=== PATIENT | female | born 1935 | race Caucasian/White ===

== ENCOUNTER 2017-12-28 05:43 | Inpatient (IN) | payer MEDICARE, OTHER ==
[~2017-12-28] VITALS: Ht 149.9 cm; Wt 87.7 kg
[~2017-12-28 05:43] MED LIST: ALEN70TA48 PO; ASPI-1144 PO; BISA-155 PO; CALC-1051 PO; CHOL10002 PO; CLOT12CR TOP; DOCU-28 PO; FERR325T39 PO; HYDR-4383 PO; LEVO137T20 PO; MELO15TA13 PO; METF-436 PO; METO25TA6 PO; MULT-1141 PO; NIFE90TA2 PO; OMEG1CAP54 PO; OMEP20CA10 PO; SIMV40TA4 PO; VIT1CAPS27 PO
[2017-12-28 06:11] LABS: BASOPHILS % (AUTO) 0.4 % (0-1); EOSINOPHILS # (AUTO) 0.2 X10'3 (0-0.9); EOSINOPHILS % (AUTO) 2.6 % (0-6); HEMATOCRIT 38.5 % (35.0-45.0); LYMPHOCYTES # (AUTO) 2.2 X10'3 (1.1-4.8); MEAN CORPUSCULAR HGB CONC 33.8 % (33.0-36.5); MEAN CORPUSCULAR VOLUME 91.8 FL (78-98); MONOCYTES # (AUTO) 1.1 X10'3 (0-0.9); MONOCYTES % (AUTO) 12.1 % (2-12); NEUTROPHILS # (AUTO) 5.7 X10'3 (1.8-7.7); NEUTROPHILS % (AUTO) 60.9 % (42-75); PLATELET COUNT 209 X10'3 (140-440); RED BLOOD COUNT 4.19 X10'6 (4.20-5.60); RED CELL DISTRIBUTION WIDTH 13.1 % (11.5-14.5); WHITE BLOOD COUNT 9.3 X10'3 (4.5-11.0)
[2017-12-28 06:17] LABS: PARTIAL THROMBOPLASTIN TIME 29 SECONDS (22-32); PROTHROMBIN TIME 10.8 SECONDS (9.0-12.0)
[2017-12-28 06:24] LABS: ALANINE AMINOTRANSFERASE 17 U/L (12-78); ALBUMIN 3.6 G/DL (3.4-5.0); ALBUMIN/GLOBULIN RATIO 0.9 (1.1-1.5); ALKALINE PHOSPHATASE 49 IU/L (46-116); ANION GAP 15 (8-16); ASPARTATE AMINO TRANSFERASE 17 U/L (10-37); BILIRUBIN,TOTAL 0.5 MG/DL (0.1-1.0); BLOOD UREA NITROGEN 16 MG/DL (7-18); BUN/CREATININE RATIO 14.2 (6.6-38.0); CALCIUM 9.4 MG/DL (8.5-10.1); CHLORIDE 104 MMOL/L (99-107); CREATININE 1.13 MG/DL (0.40-0.90); GLUCOSE 154 MG/DL (70-104); POTASSIUM 3.9 MMOL/L (3.5-5.1); SODIUM 142 MMOL/L (135-145); TOTAL PROTEIN 7.6 G/DL (6.4-8.2); eGFR 46 ML/MIN
[2017-12-28] MEDS ORDERED: SYN0.088T PO (07:23)
[2017-12-28] MEDS ORDERED: mag hydrox/Alum hydrox/simeth 30ml oral suspension PO PRN (08:00)
[2017-12-28] MEDS ORDERED: potassium Cl 40MEQ/NS 500ml 500 ML IV PRN ×2 (08:00)
[2017-12-28] MEDS ORDERED: magnesium hydroxide 30ml (MOM) UD suspension PO PRN (08:00)
[2017-12-28] MEDS ORDERED: magnesium Cl slow-release 64mg tablet PO PRN (08:00)
[2017-12-28] MEDS ORDERED: levoTHYROXINE 88mcg tablet PO SCH (08:00)
[2017-12-28] MEDS: K and/or MAG REPLACEMENT MC SCH (08:00)
[2017-12-28] MEDS ORDERED: magnesium 4gm in 100ml NS 100 ML IV PRN (08:00)
[2017-12-28] MEDS ORDERED: potassium Cl 20 mEq SR tablet PO PRN ×2 (08:00)
[2017-12-28] MEDS ORDERED: magnesium 1gm/100ml D5W IVPB 100 ML IV PRN (08:00)
[2017-12-28] MEDS ORDERED: ondansetron/PF 4mg/2ml inj IV PRN (08:00)
[2017-12-28] MEDS ORDERED: acetaminophen 325mg tablet PO PRN (08:00)
[2017-12-28] MEDS ORDERED: bisacodyl 10mg suppository rectal RC PRN (08:00)
[2017-12-28] MEDS ORDERED: morphine 2 MG/ML inj. syringe IV PRN ×2 (08:00)
[2017-12-28] MEDS ORDERED: glucagon, human recombinant 1mg kit SUBCUT PRN (08:05)
[2017-12-28] MEDS ORDERED: dextrose 50%-water 50ml dispensing syringe IV PRN ×2 (08:05)
[2017-12-28] MEDS ORDERED: dextrose ORAL solution 15 GM/59 ML bottle PO PRN ×2 (08:05)
[2017-12-28] MEDS ORDERED: MESSAGE TO PHARMACY PO ONE (08:05)
[2017-12-28] MEDS ORDERED: insulin Lispro (HumaLOG) vial - multi-dose SQ SCH (08:05)
[2017-12-28] MEDS ORDERED: nitroGLYCERIN 0.4mg SUBLingual tab SL PRN (08:10)
[2017-12-28 08:41] LABS: HEMOGLOBIN A1C 6.2 % (4.5-6.2)
[2017-12-28 09:00] VITALS: BP 129/68
[2017-12-28 11:00] VITALS: BP 111/64
[2017-12-28] MEDS: docusate sod 100mg capsule PO SCH ×2 (11:04→20:16)
[2017-12-28] MEDS: metoprolol tartrate 25mg tablet PO SCH ×2 (11:04→20:17)
[2017-12-28] MEDS: furosemide 20 MG/2 ML vial IV SCH ×2 (11:05→16:30)
[2017-12-28] MEDS: potassium Cl 20 mEq SR tablet PO SCH ×2 (11:07→17:47)
[2017-12-28] MEDS: enoxaparin 40mg/0.4ml syringe SUBCUT SCH (11:07)
[2017-12-28] MEDS: aspirin 81mg tab.chew PO SCH (11:08)
[2017-12-28 15:56] VITALS: BP 118/69
[2017-12-28 18:00] VITALS: BP 104/68
[2017-12-28] MEDS: atorvastatin 20mg tablet PO SCH (20:16)
[2017-12-28] MEDS: insulin glargine (Lantus) pen - multi-dose SQ SCH (21:00)
[2017-12-28 22:00] VITALS: BP 108/60
[2017-12-29] MEDS: furosemide 20 MG/2 ML vial IV SCH ×3 (00:23→16:00)
[2017-12-29 02:00] VITALS: BP 112/65
[2017-12-29 06:45] LABS: ALANINE AMINOTRANSFERASE 15 U/L (12-78); ALBUMIN 3.2 G/DL (3.4-5.0); ALBUMIN/GLOBULIN RATIO 0.9 (1.1-1.5); ALKALINE PHOSPHATASE 45 IU/L (46-116); ANION GAP 12 (8-16); ASPARTATE AMINO TRANSFERASE 14 U/L (10-37); BILIRUBIN,TOTAL 0.5 MG/DL (0.1-1.0); BLOOD UREA NITROGEN 16 MG/DL (7-18); BUN/CREATININE RATIO 15.7 (6.6-38.0); CALCIUM 8.3 MG/DL (8.5-10.1); CHLORIDE 104 MMOL/L (99-107); CHOL/HDL RATIO 2.9 (0.00-4.99); CHOLESTEROL 122 MG/DL (0-200); CREATININE 1.02 MG/DL (0.40-0.90); GLUCOSE 127 MG/DL (70-104); HDL CHOLESTEROL 42 MG/DL (35-60); LDL CHOLESTEROL 66 MG/DL (50-100); MAGNESIUM 1.6 MG/DL (1.5-2.4); POTASSIUM 3.8 MMOL/L (3.5-5.1); SODIUM 143 MMOL/L (135-145); TOTAL PROTEIN 6.9 G/DL (6.4-8.2); TRIGLYCERIDES 95 MG/DL (20-135); eGFR 52 ML/MIN
[2017-12-29 07:00] VITALS: BP 112/76
[2017-12-29] MEDS: aspirin 81mg tab.chew PO SCH (07:20)
[2017-12-29] MEDS: enoxaparin 40mg/0.4ml syringe SUBCUT SCH (07:20)
[2017-12-29] MEDS: K and/or MAG REPLACEMENT MC SCH (07:22)
[2017-12-29] MEDS ORDERED: metoprolol tartrate 12.5mg (1/2 tablet) PO SCH (07:29)
[2017-12-29] MEDS: docusate sod 100mg capsule PO SCH ×2 (07:33→20:26)
[2017-12-29] MEDS: potassium Cl 20 mEq SR tablet PO SCH ×2 (07:35→17:32)
[2017-12-29] MEDS ORDERED: levoTHYROXINE 75mcg tablet PO SCH (08:00)
[2017-12-29 11:00] VITALS: BP 113/66
[2017-12-29] MEDS: lisinopril 2.5mg tablet PO SCH (13:40)
[2017-12-29 15:00] VITALS: BP 105/65
[2017-12-29 19:00] VITALS: BP 113/62
[2017-12-29] MEDS: metoprolol tartrate 25mg tablet PO SCH (20:26)
[2017-12-29] MEDS: atorvastatin 20mg tablet PO SCH (20:26)
[2017-12-29] MEDS: insulin glargine (Lantus) pen - multi-dose SQ SCH (21:00)
[2017-12-29 23:00] VITALS: BP 126/85
[2017-12-30] MEDS: furosemide 20 MG/2 ML vial IV SCH ×3 (00:40→16:08)
[2017-12-30 03:00] VITALS: BP 104/65
[2017-12-30 05:40] LABS: ALANINE AMINOTRANSFERASE 15 U/L (12-78); ALBUMIN 3.2 G/DL (3.4-5.0); ALBUMIN/GLOBULIN RATIO 0.8 (1.1-1.5); ALKALINE PHOSPHATASE 45 IU/L (46-116); ANION GAP 11 (8-16); ASPARTATE AMINO TRANSFERASE 16 U/L (10-37); BILIRUBIN,TOTAL 0.5 MG/DL (0.1-1.0); BLOOD UREA NITROGEN 15 MG/DL (7-18); BUN/CREATININE RATIO 14.7 (6.6-38.0); CHLORIDE 103 MMOL/L (99-107); CREATININE 1.02 MG/DL (0.40-0.90); GLUCOSE 135 MG/DL (70-104); MAGNESIUM 1.7 MG/DL (1.5-2.4); POTASSIUM 3.8 MMOL/L (3.5-5.1); SODIUM 143 MMOL/L (135-145); eGFR 52 ML/MIN
[2017-12-30 06:00] VITALS: BP 97/57
[2017-12-30] MEDS: K and/or MAG REPLACEMENT MC SCH (08:00)
[2017-12-30] MEDS: levoTHYROXINE 125mcg tablet PO SCH (08:50)
[2017-12-30] MEDS: aspirin 81mg tab.chew PO SCH (08:51)
[2017-12-30] MEDS: potassium Cl 20 mEq SR tablet PO SCH ×2 (08:51→17:51)
[2017-12-30] MEDS: docusate sod 100mg capsule PO SCH ×2 (08:51→20:50)
[2017-12-30] MEDS: enoxaparin 40mg/0.4ml syringe SUBCUT SCH (08:51)
[2017-12-30] MEDS: lisinopril 2.5mg tablet PO SCH ×2 (08:51→16:08)
[2017-12-30] MEDS: metoprolol tartrate 25mg tablet PO SCH ×2 (08:51→20:50)
[2017-12-30 11:00] VITALS: BP 112/64
[2017-12-30 19:00] VITALS: BP 119/59
[2017-12-30] MEDS: atorvastatin 20mg tablet PO SCH (20:50)
[2017-12-30] MEDS: insulin glargine (Lantus) pen - multi-dose SQ SCH (21:00)
[2017-12-30 23:00] VITALS: BP 110/48
[2017-12-31] VITALS (7 sets, daily range): BP systolic 87–121; BP diastolic 45–77
[2017-12-31 06:04] LABS: ALANINE AMINOTRANSFERASE 17 U/L (12-78); ALBUMIN 3.2 G/DL (3.4-5.0); ALBUMIN/GLOBULIN RATIO 0.8 (1.1-1.5); ALKALINE PHOSPHATASE 51 IU/L (46-116); ANION GAP 8 (8-16); ASPARTATE AMINO TRANSFERASE 17 U/L (10-37); BILIRUBIN,TOTAL 0.5 MG/DL (0.1-1.0); BLOOD UREA NITROGEN 20 MG/DL (7-18); BUN/CREATININE RATIO 18.3 (6.6-38.0); CALCIUM 7.9 MG/DL (8.5-10.1); CHLORIDE 101 MMOL/L (99-107); CREATININE 1.09 MG/DL (0.40-0.90); GLUCOSE 127 MG/DL (70-104); MAGNESIUM 1.8 MG/DL (1.5-2.4); POTASSIUM 4.2 MMOL/L (3.5-5.1); SODIUM 139 MMOL/L (135-145); TOTAL CARBON DIOXIDE 29.9 MMOL/L (24-32); TOTAL PROTEIN 7.2 G/DL (6.4-8.2); eGFR 48 ML/MIN
[2017-12-31] MEDS: enoxaparin 40mg/0.4ml syringe SUBCUT SCH (07:21)
[2017-12-31] MEDS: levoTHYROXINE 125mcg tablet PO SCH (07:21)
[2017-12-31] MEDS: aspirin 81mg tab.chew PO SCH (07:21)
[2017-12-31] MEDS: docusate sod 100mg capsule PO SCH ×2 (07:21→20:00)
[2017-12-31] MEDS: furosemide 20 MG/2 ML vial IV SCH ×3 (07:21→15:13)
[2017-12-31] MEDS: metoprolol tartrate 25mg tablet PO SCH ×2 (07:22→20:12)
[2017-12-31] MEDS: K and/or MAG REPLACEMENT MC SCH (07:22)
[2017-12-31] MEDS: potassium Cl 20 mEq SR tablet PO SCH ×2 (07:22→15:13)
[2017-12-31] MEDS: lisinopril 2.5mg tablet PO SCH (07:22)
[2017-12-31] MEDS: atorvastatin 20mg tablet PO SCH (20:12)
[2017-12-31] MEDS: insulin glargine (Lantus) pen - multi-dose SQ SCH (21:00)
[2018-01-01] MEDS: furosemide 20 MG/2 ML vial IV SCH ×2 (00:29→07:20)
[2018-01-01 03:00] VITALS: BP 93/41
[2018-01-01 03:17] VITALS: BP 109/58
[2018-01-01 06:04] LABS: ALANINE AMINOTRANSFERASE 15 U/L (12-78); ALBUMIN 3.2 G/DL (3.4-5.0); ALBUMIN/GLOBULIN RATIO 0.9 (1.1-1.5); ALKALINE PHOSPHATASE 49 IU/L (46-116); ANION GAP 10 (8-16); ASPARTATE AMINO TRANSFERASE 19 U/L (10-37); BILIRUBIN,TOTAL 0.5 MG/DL (0.1-1.0); BLOOD UREA NITROGEN 18 MG/DL (7-18); BUN/CREATININE RATIO 18.2 (6.6-38.0); CALCIUM 8.6 MG/DL (8.5-10.1); CHLORIDE 99 MMOL/L (99-107); CREATININE 0.99 MG/DL (0.40-0.90); GLUCOSE 134 MG/DL (70-104); MAGNESIUM 1.9 MG/DL (1.5-2.4); POTASSIUM 3.7 MMOL/L (3.5-5.1); SODIUM 138 MMOL/L (135-145); TOTAL CARBON DIOXIDE 29.2 MMOL/L (24-32); TOTAL PROTEIN 6.8 G/DL (6.4-8.2); eGFR 53 ML/MIN
[2018-01-01] MEDS: lisinopril 2.5mg tablet PO SCH (07:27)
[2018-01-01] MEDS: metoprolol tartrate 25mg tablet PO SCH (07:27)
[2018-01-01] MEDS: aspirin 81mg tab.chew PO SCH (07:27)
[2018-01-01] MEDS: docusate sod 100mg capsule PO SCH (07:27)
[2018-01-01] MEDS: levoTHYROXINE 125mcg tablet PO SCH (07:27)
[2018-01-01] MEDS: enoxaparin 40mg/0.4ml syringe SUBCUT SCH (07:29)
[2018-01-01] MEDS: K and/or MAG REPLACEMENT MC SCH (07:32)
[2018-01-01 07:39] VITALS: BP 119/59
[2018-01-01 09:00] VITALS: BP 100/50
[2018-01-01] MEDS: potassium Cl 20 mEq SR tablet PO SCH (09:06)
[2018-01-01 11:42] VITALS: BP 104/53
[2018-01-01] MEDS ORDERED: LISI2.5T2 PO (15:12)
[2018-01-01] MEDS ORDERED: NITR0.4T51 SL (15:12)
[2018-01-01] MEDS ORDERED: LEVO125T8 PO (15:12)
== END 2018-01-01 15:43 | disposition home health service (06) | DRG 292 ==
LOC: ER 05:43 → ED HOLD 07:56 → EDBEDREQTM 08:11 → PCU 3S 09:00
PROVIDERS: ADMIT Internal Medicine; ATTEND Family Medicine
DX: I50.23 Acute on chronic systolic (congestive) heart failure (principal); I24.9 Acute ischemic heart disease, unspecified; I47.2 Ventricular tachycardia; R06.03 Acute respiratory distress; Z95.3 Presence of xenogenic heart valve; E03.9 Hypothyroidism, unspecified; E11.9 Type 2 diabetes mellitus without complications; E78.00 Pure hypercholesterolemia, unspecified; I25.10 Atherosclerotic heart disease of native coronary artery without angina pectoris; G89.29 Other chronic pain; I25.2 Old myocardial infarction; Z60.2 Problems related to living alone; L40.52 Psoriatic arthritis mutilans; M06.9 Rheumatoid arthritis, unspecified; Z89.021 Acquired absence of right finger(s); Z95.1 Presence of aortocoronary bypass graft; Z88.5 Allergy status to narcotic agent; Z88.8 Allergy status to other drugs, medicaments and biological substances; Z79.890 Hormone replacement therapy; Z79.899 Other long term (current) drug therapy; Z85.3 Personal history of malignant neoplasm of breast; Z92.3 Personal history of irradiation
CPT/HCPCS: 36415; 71045; 80053; 80061; 82948; 83036; 83735; 83880; 84443; 84484; 85025; 85610; 85730; 87070; 93005; 93306; 97110; 97116; 97162; 97530; 99285; J1650; J1815; J1940

== ENCOUNTER 2018-01-22 08:05 | Day surgery (SDC) | payer MEDICARE, OTHER ==
[2018-01-17 11:20] LABS: BASOPHILS % (AUTO) 0.5 % (0-1); EOSINOPHILS # (AUTO) 0.1 X10'3 (0-0.9); EOSINOPHILS % (AUTO) 1.9 % (0-6); HEMATOCRIT 38.7 % (35.0-45.0); HEMOGLOBIN 12.9 g/dl (12.0-16.0); LYMPHOCYTES # (AUTO) 1.9 X10'3 (1.1-4.8); LYMPHOCYTES % (AUTO) 26.4 % (21-51); MEAN CORPUSCULAR HEMOGLOBIN 30.3 PG (27.0-31.0); MEAN CORPUSCULAR HGB CONC 33.3 % (33.0-36.5); MEAN CORPUSCULAR VOLUME 91.2 FL (78-98); MEAN PLATELET VOLUME 9.4 FL (7.4-10.4); MONOCYTES # (AUTO) 1.1 X10'3 (0-0.9); MONOCYTES % (AUTO) 14.3 % (2-12); NEUTROPHILS # (AUTO) 4.2 X10'3 (1.8-7.7); NEUTROPHILS % (AUTO) 56.9 % (42-75); PLATELET COUNT 229 X10'3 (140-440); RED BLOOD COUNT 4.24 X10'6 (4.20-5.60); RED CELL DISTRIBUTION WIDTH 13.1 % (11.5-14.5); WHITE BLOOD COUNT 7.4 X10'3 (4.5-11.0)
[2018-01-17 11:41] LABS: PARTIAL THROMBOPLASTIN TIME 28 SECONDS (22-32); PROTHROMBIN TIME 10.8 SECONDS (9.0-12.0)
[2018-01-17 11:45] LABS: ALANINE AMINOTRANSFERASE 15 U/L (12-78); ALBUMIN 3.6 G/DL (3.4-5.0); ALBUMIN/GLOBULIN RATIO 0.9 (1.1-1.5); ALKALINE PHOSPHATASE 55 IU/L (46-116); ANION GAP 12 (8-16); ASPARTATE AMINO TRANSFERASE 14 U/L (10-37); BILIRUBIN,TOTAL 0.5 MG/DL (0.1-1.0); BLOOD UREA NITROGEN 15 MG/DL (7-18); BUN/CREATININE RATIO 13.4 (6.6-38.0); CALCIUM 9.4 MG/DL (8.5-10.1); CHLORIDE 100 MMOL/L (99-107); CREATININE 1.12 MG/DL (0.40-0.90); GLUCOSE 92 MG/DL (70-104); POTASSIUM 4.1 MMOL/L (3.5-5.1); SODIUM 139 MMOL/L (135-145); TOTAL PROTEIN 7.8 G/DL (6.4-8.2); eGFR 46 ML/MIN
[2018-01-22] VITALS (12 sets, daily range): BP systolic 98–129; BP diastolic 48–71
[~2018-01-22] VITALS: Ht 149.9 cm; Wt 85.7 kg
[~2018-01-22 08:05] MED LIST changes: -CHOL10002 PO; -CLOT12CR TOP; -FERR325T39 PO; +LEVO125T8 PO; -LEVO137T20 PO; +LISI2.5T2 PO; -MELO15TA13 PO; -NIFE90TA2 PO; +NITR0.4T51 SL; -OMEP20CA10 PO
[2018-01-22] MEDS ORDERED: nitroGLYCERIN 0.4mg SUBLingual tab SL PRN (08:40)
[2018-01-22] MEDS ORDERED: diphenhydrAMINE 25mg capsule PO PRN (08:40)
[2018-01-22] MEDS ORDERED: normal saline 1000ml 1,000 ML IV SCH (08:40)
[2018-01-22] MEDS ORDERED: LORazepam 0.5 MG tablet PO PRN (08:40)
[2018-01-22] MEDS ORDERED: glucagon, human recombinant 1mg kit SUBCUT PRN (08:50)
[2018-01-22] MEDS ORDERED: dextrose 50%-water 50ml dispensing syringe IV PRN ×2 (08:50)
[2018-01-22] MEDS ORDERED: MESSAGE TO PHARMACY PO ONE (08:50)
[2018-01-22] MEDS ORDERED: insulin Lispro (HumaLOG) vial - multi-dose SQ SCH (08:50)
[2018-01-22] MEDS ORDERED: dextrose ORAL solution 15 GM/59 ML bottle PO PRN ×2 (08:50)
[2018-01-22] MEDS ORDERED: FURO-149 PO (10:05)
[2018-01-22] MEDS ORDERED: midazolam 2 mg/2 ml injection ONE (11:14)
[2018-01-22] MEDS ORDERED: fentaNYL/PF 50MCG/1 ML 2ML syringe ONE (11:14)
[2018-01-22] MEDS ORDERED: iohexol 350 MG/ML 50ML vial IV ONE ×2 (11:15→11:55)
[2018-01-22] MEDS ORDERED: iohexol 350MG/ML 100ml bottle IV ONE (11:15)
[2018-01-22] MEDS ORDERED: LIDOcaine 1% (10mg/ml)w/preservative injection 20ml MDV ONE (11:16)
[2018-01-22] MEDS ORDERED: proCHLORperazine 10 MG/2 ml inj IV PRN (13:05)
[2018-01-22] MEDS ORDERED: OXAZEpam 15mg capsule PO PRN (13:05)
[2018-01-22] MEDS ORDERED: HYDROcodone/acetaminophen 10/325mg tab PO PRN (13:05)
[2018-01-22] MEDS ORDERED: HYDROcodone/acetaminophen 5mg/325mg tablet PO PRN (13:05)
[2018-01-22] MEDS ORDERED: ondansetron/PF 4mg/2ml inj IV PRN (13:05)
[2018-01-22 15:50] LABS: ISTAT Hct MIX 33 %PCV (35-48); ISTAT O2 SATURATION MIX VENOUS 68 % (60-80); ISTAT SOURCE MIX
[2018-01-22] MEDS ORDERED: insulin glargine (Lantus) pen - multi-dose SQ SCH (21:00)
[2018-01-23 05:15] LABS: ISTAT Hct MIX 35 %PCV (35-48); ISTAT O2 SATURATION MIX VENOUS 65 % (60-80); ISTAT SOURCE MIX
[2018-01-23 09:05] LABS: ISTAT HGB ART 11.6 g/dl (12.0-16.0); ISTAT Hct ART 34 %PCV (35-48); ISTAT O2 SATURATION ARTERIAL 99 % (95-98); ISTAT SOURCE ART
[2018-01-23 10:26] LABS: ISTAT Hct MIX 33 %PCV (35-48); ISTAT O2 SATURATION MIX VENOUS 66 % (60-80); ISTAT SOURCE MIX
== END 2018-01-22 19:05 | disposition home or self-care (01) ==
LOC: SSTAY O 08:05
PROVIDERS: ATTEND Internal Medicine Cardiovascular Disease
DX: I25.10 Atherosclerotic heart disease of native coronary artery without angina pectoris (principal); I42.9 Cardiomyopathy, unspecified; I51.7 Cardiomegaly; I11.0 Hypertensive heart disease with heart failure; I50.9 Heart failure, unspecified; E78.5 Hyperlipidemia, unspecified; E03.9 Hypothyroidism, unspecified; M19.90 Unspecified osteoarthritis, unspecified site; Z88.6 Allergy status to analgesic agent; D89.89 Other specified disorders involving the immune mechanism, not elsewhere classified; Z95.4 Presence of other heart-valve replacement
CPT/HCPCS: 36415; 71046; 80053; 82803; 82948; 85014; 85025; 85610; 85730; 93005; 93460; 93567; 99152; 99153; A6257; C1769; J1644; J2001; J2250; J3010; J7030; Q0163; Q9967; A4620; J1815

== ENCOUNTER 2018-03-06 07:10 | Day surgery (SDC) | payer MEDICARE ==
[2018-03-05 14:27] LABS: GLUCOSE 110 MG/DL (70-104); POTASSIUM 3.8 MMOL/L (3.5-5.1); SODIUM 139 MMOL/L (135-145)
[2018-03-05 14:28] LABS: ALBUMIN 3.7 G/DL (3.4-5.0); ANION GAP 13 (8-16); BLOOD UREA NITROGEN 14 MG/DL (7-18); BUN/CREATININE RATIO 12.1 (6.6-38.0); CALCIUM 9.2 MG/DL (8.5-10.1); CHLORIDE 101 MMOL/L (99-107); CREATININE 1.16 MG/DL (0.40-0.90); TOTAL CARBON DIOXIDE 24.9 MMOL/L (24-32); eGFR 45 ML/MIN
[~2018-03-06] VITALS: Ht 149.9 cm; Wt 82.5 kg
[~2018-03-06 07:10] MED LIST changes: -BISA-155 PO; +FURO-149 PO; -HYDR-4383 PO; -MULT-1141 PO
[2018-03-06] MEDS ORDERED: sod bicarbonate 150mEq in D5W 1,150 ML IV ONE (07:30)
[2018-03-06 07:53] VITALS: BP 113/42
[2018-03-06] MEDS: acetylcysteine 200 MG/ml 4ml vial PO PRN ×2 (08:17→15:23)
[2018-03-06] MEDS ORDERED: iohexol 350MG/ML 100ml bottle IV ONE (08:34)
[2018-03-06] MEDS ORDERED: iohexol 350 MG/ML 50ML vial IV ONE (08:34)
[2018-03-06] MEDS ORDERED: SYN0.088T PO (11:04)
[2018-03-06] MEDS ORDERED: POTA20PA40 PO (11:04)
[2018-03-06 15:23] VITALS: BP 116/49
[2018-03-07] MEDS ORDERED: MESSAGE TO NURSING PO SCH (10:09)
== END 2018-03-06 15:35 | disposition home or self-care (01) ==
LOC: SSTAY O 07:10 → EDSTATUS 09:00 → SSTAY O 15:35
PROVIDERS: ATTEND Thoracic Surgery (Cardiothoracic Vascular Surgery)
DX: I35.8 Other nonrheumatic aortic valve disorders (principal); I70.0 Atherosclerosis of aorta; R91.1 Solitary pulmonary nodule; I70.1 Atherosclerosis of renal artery; I72.8 Aneurysm of other specified arteries; N28.1 Cyst of kidney, acquired; M47.816 Spondylosis without myelopathy or radiculopathy, lumbar region; I70.293 Other atherosclerosis of native arteries of extremities, bilateral legs; Q25.46 Tortuous aortic arch; I10 Essential (primary) hypertension; I25.810 Atherosclerosis of coronary artery bypass graft(s) without angina pectoris; E78.5 Hyperlipidemia, unspecified; K21.9 Gastro-esophageal reflux disease without esophagitis; M19.90 Unspecified osteoarthritis, unspecified site; E11.9 Type 2 diabetes mellitus without complications; Z89.021 Acquired absence of right finger(s); Z90.89 Acquired absence of other organs; Z98.41 Cataract extraction status, right eye; Z98.42 Cataract extraction status, left eye; Z72.89 Other problems related to lifestyle; Z88.5 Allergy status to narcotic agent; Z95.2 Presence of prosthetic heart valve; Z85.3 Personal history of malignant neoplasm of breast; Z90.12 Acquired absence of left breast and nipple; Z85.828 Personal history of other malignant neoplasm of skin; Z95.1 Presence of aortocoronary bypass graft; Z95.5 Presence of coronary angioplasty implant and graft; Z87.891 Personal history of nicotine dependence; Z87.09 Personal history of other diseases of the respiratory system; Z92.3 Personal history of irradiation; Z79.84 Long term (current) use of oral hypoglycemic drugs; Z79.899 Other long term (current) drug therapy; Z88.8 Allergy status to other drugs, medicaments and biological substances; Z98.890 Other specified postprocedural states; Z82.49 Family history of ischemic heart disease and other diseases of the circulatory system
CPT/HCPCS: 36415; 71275; 75635; 80048; Q9967

== ENCOUNTER 2018-05-05 05:10 | Inpatient (IN) | payer MEDICARE, OTHER ==
[2018-05-01 15:03] LABS: BASOPHILS % (AUTO) 0.4 % (0-1); EOSINOPHILS # (AUTO) 0.1 X10'3 (0-0.9); EOSINOPHILS % (AUTO) 1.4 % (0-6); LYMPHOCYTES # (AUTO) 2.1 X10'3 (1.1-4.8); LYMPHOCYTES % (AUTO) 28.5 % (21-51); MEAN CORPUSCULAR HEMOGLOBIN 30.1 PG (27.0-31.0); MEAN CORPUSCULAR HGB CONC 33.5 g/dL (33.0-36.5); MEAN CORPUSCULAR VOLUME 89.9 FL (78-98); MEAN PLATELET VOLUME 9.7 FL (7.4-10.4); MONOCYTES # (AUTO) 0.9 X10'3 (0-0.9); MONOCYTES % (AUTO) 12.7 % (2-12); NEUTROPHILS # (AUTO) 4.2 X10'3 (1.8-7.7); PRE OP HEMOGLOBIN 13.1 g/dL (12.0-16.0); PRE OP PLATELET COUNT 195 X10'3 (140-440); RED BLOOD COUNT 4.33 X10'6 (4.20-5.60); RED CELL DISTRIBUTION WIDTH 13.8 % (11.5-14.5)
[2018-05-01 15:09] LABS: HEMOGLOBIN A1C 6.2 % (4.5-6.2)
[2018-05-01 15:24] LABS: ALBUMIN 3.7 G/DL (3.4-5.0); ALBUMIN/GLOBULIN RATIO 0.8 (1.1-1.5); ALKALINE PHOSPHATASE 60 IU/L (46-116); BLOOD UREA NITROGEN 26 MG/DL (7-18); BUN/CREATININE RATIO 23.9 (6.6-38.0); CALCIUM 9.7 MG/DL (8.5-10.1); CHLORIDE 101 MMOL/L (99-107); CREATININE 1.09 MG/DL (0.40-0.90); PRE OP ALT 16 U/L (30-65); PRE OP ANION GAP 9 (8-16); PRE OP AST 17 U/L (10-37); PRE OP BILIRUB, TOTAL 0.5 MG/DL (0.0-1.0); PRE OP GLUCOSE 91 MG/DL (70-104); PRE OP SODIUM 138 MMOL/L (135-145); TOTAL CARBON DIOXIDE 27.6 MMOL/L (24-32); TOTAL PROTEIN 8.3 G/DL (6.4-8.2); eGFR 48 ML/MIN
[2018-05-01 15:26] LABS: PRE OP INR 1.1 INR
[2018-05-01 15:37] LABS: CLARITY,URINE CLEAR (Clear); COLOR,URINE STRAW (Yellow); GLUCOSE, URINE NEGATIVE (Neg); KETONES,URINE NEGATIVE (Neg); LEUKOCYTE ESTERASE ,URINE NEGATIVE (Neg); NITRITES, URINE NEGATIVE (Neg); OCCULT BLOOD,URINE NEGATIVE (Neg); PH,URINE 5.5 (4.8-8.0); PROTEIN,URINE NEGATIVE (Neg); UA COLLECTION TYPE NON-SPECIFIED; UROBILINOGEN,URINE 0.2 E.U/dL (0.2-1.0)
[2018-05-01 17:36] LABS: ABG BASE EXCESS 0.8 mmol/L (-2.0-3.0); ABG HCO3 24.8 mmol/L (22.0-26.0); ABG OXYGEN SATURATION 96.4 % (95-98); ABG PCO2 (T) 37.5 mmHg (32.0-45.0); ABG PH (T) 7.438 (7.350-7.450); ABG PO2 (T) 77.8 mmHg (83-108); ALLEN'S TEST Positive; FCOHb 0.9 % (0.5-1.5); FMetHb 0.1 % (0.3-1.12); FO2Hb 95.4 % (94-100); TOTAL HEMOGLOBIN 13.2 G/dl (12.0-16.0)
[~2018-05-05] VITALS: Ht 121.9 cm; Wt 79.4 kg
[~2018-05-05 05:10] MED LIST changes: +A REDS PO; +ALEN70TA13 PO; -ALEN70TA48 PO; -ASPI-1144 PO; +ASPI-611 PO; -CALC-1051 PO; +CALC1TAB PO; -DOCU-28 PO; +HYDR-4353 PO; +LEVO125T PO; -LEVO125T8 PO; +LORazepam 2 mg/ml vial IV PRN; -METO25TA6 PO; -NITR0.4T51 SL; +POTA20PA40 PO; -VIT1CAPS27 PO; +cefazolin/dext.iso 2gm/50ml 50 ML IV ONE; +dextrose 50%-water 50ml dispensing syringe IV PRN; +insulin regular, human 100 UNIT in normal saline 100ml IV soln 99 ML IV SCH; +metoprolol tartrate 12.5mg (1/2 tablet) PO PRN; +mupirocin 2% nasal ointment 1gm UD NS SCH; +ringers solution, lacted 1,000 ML IV SCH
[2018-05-05] MEDS ORDERED: famotidine 20mg tablet PO ONE (05:30)
[2018-05-05] MEDS ORDERED: LIDOcaine 1% (10mg/ml) 2ml vial ONE (05:47)
[2018-05-05 06:32] VITALS: BP_SYST 115
[2018-05-05] MEDS ORDERED: METO25TA6 PO (06:42)
--- NOTE | 2018-05-05 08:00 | NUR ---
pt presented on pas for cardiac surgery with a red, raised rash under both breasts and up on sternum. rash was present on admit but became more irritated and itchy after chlorhexidine wipes were used. notified or devulcanizer charger. dr casas inspected rash and surgery will be postponed until rash is resolved. dr casas wrote prescription for antifungal. pt dcd home in stable condition, taken to car via .
[2018-05-09] MEDS ORDERED: LEVO150T8 PO (16:50)
[2018-05-09] MEDS ORDERED: VIT1CAPS46 PO (16:50)
[2018-05-09] MEDS ORDERED: POTA-82 PO (16:50)
== END 2018-05-05 08:00 | disposition home or self-care (01) | DRG 315 ==
LOC: PAS IN 05:10 → EDSTATUS 07:30
PROVIDERS: ADMIT Thoracic Surgery (Cardiothoracic Vascular Surgery); ATTEND Internal Medicine Pulmonary Disease
DX: T82.857A Stenosis of other cardiac prosthetic devices, implants and grafts, initial encounter (principal); I50.22 Chronic systolic (congestive) heart failure; I35.0 Nonrheumatic aortic (valve) stenosis; E03.9 Hypothyroidism, unspecified; E11.9 Type 2 diabetes mellitus without complications; E78.5 Hyperlipidemia, unspecified; I11.0 Hypertensive heart disease with heart failure; Z96.651 Presence of right artificial knee joint; H26.9 Unspecified cataract; M19.90 Unspecified osteoarthritis, unspecified site; I25.10 Atherosclerotic heart disease of native coronary artery without angina pectoris; Z53.09 Procedure and treatment not carried out because of other contraindication; Y71.2 Prosthetic and other implants, materials and accessory cardiovascular devices associated with adverse incidents; Z95.1 Presence of aortocoronary bypass graft; Z95.2 Presence of prosthetic heart valve; Z89.021 Acquired absence of right finger(s); Z79.899 Other long term (current) drug therapy; Z79.82 Long term (current) use of aspirin; Z85.3 Personal history of malignant neoplasm of breast; Z87.891 Personal history of nicotine dependence; Z92.3 Personal history of irradiation; Z82.49 Family history of ischemic heart disease and other diseases of the circulatory system; Z80.9 Family history of malignant neoplasm, unspecified; Y92.9 Unspecified place or not applicable
CPT/HCPCS: 36415; 36600; 71046; 80053; 81003; 82803; 83036; 84443; 85018; 85025; 85610; 85730; 86885; 86900; 86901; 86920; 87070; 93005; 93880; 93971; 94010; J0690; J1815; J3370; J3490; J7120

== ENCOUNTER 2018-05-12 05:19 | Inpatient (IN) | payer MEDICARE, OTHER | END 2018-05-16 14:00 | LOC: PAS IN 05:19 → ICU 2S 07:59 | PROC: 02RF08Z Replacement of Aortic Valve with Zooplastic Tissue, Open Approach (ICD-10-PCS; principal; 2018-05-12 06:58) | DX: T82.857A Stenosis of other cardiac prosthetic devices, implants and grafts, initial encounter (principal); I50.23 Acute on chronic systolic (congestive) heart failure; I35.0 Nonrheumatic aortic (valve) stenosis; I11.0 Hypertensive heart disease with heart failure ==

== ENCOUNTER 2018-06-08 05:36 | Inpatient (IN) | payer MEDICARE, OTHER | END 2018-06-15 13:10 | disposition home or self-care (01) | LOC: PCU 3S 06-13 10:30 → ER 05:36 → ED HOLD 10:20 → PCU 3S 16:55 | DX: I50.43 Acute on chronic combined systolic (congestive) and diastolic (congestive) heart failure (principal); N17.0 Acute kidney failure with tubular necrosis; I44.1 Atrioventricular block, second degree ==

== ENCOUNTER 2018-06-23 07:56 | Emergency (ER) | payer MEDICARE, OTHER ==
[~2018-06-23] VITALS: Ht 149.9 cm; Wt 84.1 kg
[~2018-06-23 07:56] MED LIST changes: -A REDS PO; -ALEN70TA13 PO; +ATOR10TA87 PO; +BUME1TAB4 PO; -FURO-149 PO; +GABA-530 PO; -LEVO125T PO; +LEVO150T8 PO; -LISI2.5T2 PO; -LORazepam 2 mg/ml vial IV PRN; +LOSA50TA64 PO; -METF-436 PO; +METO25TA6 PO; -OMEG1CAP54 PO; -POTA20PA40 PO; -SIMV40TA4 PO; +VIT1CAPS46 PO; -cefazolin/dext.iso 2gm/50ml 50 ML IV ONE; -dextrose 50%-water 50ml dispensing syringe IV PRN; -insulin regular, human 100 UNIT in normal saline 100ml IV soln 99 ML IV SCH; -metoprolol tartrate 12.5mg (1/2 tablet) PO PRN; -mupirocin 2% nasal ointment 1gm UD NS SCH; -ringers solution, lacted 1,000 ML IV SCH
[2018-06-23 09:05] LABS: BASOPHILS # (AUTO) 0.1 X10'3 (0-0.2); BASOPHILS % (AUTO) 0.7 % (0-1); EOSINOPHILS # (AUTO) 0.1 X10'3 (0-0.9); EOSINOPHILS % (AUTO) 1.1 % (0-6); HEMATOCRIT 28.8 % (35.0-45.0); HEMOGLOBIN 9.1 g/dl (12.0-16.0); LYMPHOCYTES # (AUTO) 1.5 X10'3 (1.1-4.8); LYMPHOCYTES % (AUTO) 17.4 % (21-51); MEAN CORPUSCULAR HEMOGLOBIN 27.8 PG (27.0-31.0); MEAN CORPUSCULAR HGB CONC 31.7 g/dL (33.0-36.5); MEAN CORPUSCULAR VOLUME 87.7 FL (78-98); MEAN PLATELET VOLUME 9.2 FL (7.4-10.4); MONOCYTES # (AUTO) 1.3 X10'3 (0-0.9); MONOCYTES % (AUTO) 15.2 % (2-12); NEUTROPHILS # (AUTO) 5.6 X10'3 (1.8-7.7); NEUTROPHILS % (AUTO) 65.6 % (42-75); PLATELET COUNT 251 X10'3 (140-440); RED BLOOD COUNT 3.28 X10'6 (4.20-5.60); RED CELL DISTRIBUTION WIDTH 15.3 % (11.5-14.5); WHITE BLOOD COUNT 8.5 X10'3 (4.5-11.0)
[2018-06-23 09:40] LABS: ALANINE AMINOTRANSFERASE 33 U/L (12-78); ALBUMIN 3.4 G/DL (3.4-5.0); ALKALINE PHOSPHATASE 98 IU/L (46-116); ANION GAP 8 (8-16); ASPARTATE AMINO TRANSFERASE 25 U/L (10-37); BILIRUBIN,TOTAL 0.4 MG/DL (0.1-1.0); BLOOD UREA NITROGEN 21 MG/DL (7-18); BUN/CREATININE RATIO 14.3 (6.6-38.0); CALCIUM 8.6 MG/DL (8.5-10.1); CHLORIDE 100 MMOL/L (99-107); CREATININE 1.47 MG/DL (0.40-0.90); GLUCOSE 114 MG/DL (70-104); POTASSIUM 4.8 MMOL/L (3.5-5.1); SODIUM 134 MMOL/L (135-145); TOTAL CARBON DIOXIDE 26.3 MMOL/L (24-32); TOTAL PROTEIN 6.9 G/DL (6.4-8.2); eGFR 34 ML/MIN
[2018-06-23 10:32] VITALS: BP 144/87
== END 2018-06-23 10:33 | disposition home or self-care (01) ==
LOC: ER 07:56
DX: R06.02 Shortness of breath (principal); K59.00 Constipation, unspecified; I25.10 Atherosclerotic heart disease of native coronary artery without angina pectoris; E78.00 Pure hypercholesterolemia, unspecified; I25.2 Old myocardial infarction; E11.9 Type 2 diabetes mellitus without complications; M19.90 Unspecified osteoarthritis, unspecified site; G89.29 Other chronic pain; M06.9 Rheumatoid arthritis, unspecified; Z98.890 Other specified postprocedural states; Z88.5 Allergy status to narcotic agent; Z88.8 Allergy status to other drugs, medicaments and biological substances; Z79.82 Long term (current) use of aspirin; Z79.899 Other long term (current) drug therapy; Z60.2 Problems related to living alone
CPT/HCPCS: 36415; 71045; 80053; 83880; 84484; 85025; 93005; 99284

== ENCOUNTER 2018-07-12 16:26 | Inpatient (IN) | payer MEDICARE, OTHER | END 2018-07-15 16:23 | disposition home or self-care (01) | LOC: ER 16:26 → PCU 3S 07-14 17:11 → CICU 2S 20:56 | PROC: 0JH606Z Insertion of Pacemaker, Dual Chamber into Chest Subcutaneous Tissue and Fascia, Open Approach (ICD-10-PCS; principal; 2018-07-12 19:18) | PROC: 02HK3NZ Insertion of Intracardiac Pacemaker into Right Ventricle, Percutaneous Approach (ICD-10-PCS; 2018-07-12 19:18) | PROC: 02H63NZ Insertion of Intracardiac Pacemaker into Right Atrium, Percutaneous Approach (ICD-10-PCS; 2018-07-12 19:18) | PROC: 5A1935Z Respiratory Ventilation, Less than 24 Consecutive Hours (ICD-10-PCS; 2018-07-12 19:18) | DX: I44.2 Atrioventricular block, complete (principal); I50.43 Acute on chronic combined systolic (congestive) and diastolic (congestive) heart failure; J96.90 Respiratory failure, unspecified, unspecified whether with hypoxia or hypercapnia; R57.0 Cardiogenic shock; I13.0 Hypertensive heart and chronic kidney disease with heart failure and stage 1 through stage 4 chronic kidney disease, or unspecified chronic kidney disease ==

== ENCOUNTER 2020-06-11 13:59 | Emergency (ER) | payer MEDICARE ==
[~2020-06-11] VITALS: Ht 149.9 cm; Wt 80.5 kg
[~2020-06-11 13:59] MED LIST changes: +ALBU8.5H8 INH; +ALEN70TA80 PO; -ATOR10TA87 PO; -BUME1TAB4 PO; -CALC1TAB PO; +FURO40TA4 PO; -HYDR-4353 PO; -LOSA50TA64 PO; +METF-950 PO; +MULT-384 PO; +NIFE-34 PO; +NITR0.4T51 SL; +POTA20TA19 PO; +SIMV-45 PO; +WARF4TAB69 PO
--- NOTE | 2020-06-11 14:10 | NUR ---
TRAUMA ALERT CALLED OFF PER DR BEAL
[2020-06-11] MEDS ORDERED: TETanus/Pertussis (Acell)/Diphther VAC/PF (Tdap-Adult) 0.5ml syringe IMVAC ONE (14:15)
[2020-06-11] MEDS ORDERED: acetaminophen 325mg tablet PO ONE (14:15)
--- NOTE | 2020-06-11 14:27 | NUR ---
to ct scan
--- NOTE | 2020-06-11 14:44 | NUR ---
BACK FROM CT SCAN
--- NOTE | 2020-06-11 15:19 | NUR ---
VPACED SR 80, 99% ON RA 16 128/ 69 PAIN "BETTER"
[2020-06-11 16:15] VITALS: BP 127/69
== END 2020-06-11 16:16 | disposition home or self-care (01) ==
LOC: ER 14:00
DX: S81.811A Laceration without foreign body, right lower leg, initial encounter (principal); S00.03XA Contusion of scalp, initial encounter; R18.8 Other ascites; R22.43 Localized swelling, mass and lump, lower limb, bilateral; I50.9 Heart failure, unspecified; M06.9 Rheumatoid arthritis, unspecified; I25.10 Atherosclerotic heart disease of native coronary artery without angina pectoris; I25.2 Old myocardial infarction; E78.00 Pure hypercholesterolemia, unspecified; E11.9 Type 2 diabetes mellitus without complications; E07.9 Disorder of thyroid, unspecified; G89.29 Other chronic pain; M19.90 Unspecified osteoarthritis, unspecified site; Z79.01 Long term (current) use of anticoagulants; Z85.3 Personal history of malignant neoplasm of breast; Z98.891 History of uterine scar from previous surgery; Z98.890 Other specified postprocedural states; Z79.82 Long term (current) use of aspirin; Z79.899 Other long term (current) drug therapy; Z88.8 Allergy status to other drugs, medicaments and biological substances; W06.XXXA Fall from bed, initial encounter; Y93.89 Activity, other specified; Y92.89 Other specified places as the place of occurrence of the external cause; Y99.8 Other external cause status
CPT/HCPCS: 70450; 72131; 72192; 90471; 90715; 99285

== ENCOUNTER 2020-06-14 11:36 | Outpatient (CLI) | payer MEDICARE | END 2020-06-14 23:59 | disposition home or self-care (01) | LOC: CARD DIAG 11:36 | PROVIDERS: ATTEND Internal Medicine Cardiovascular Disease | DX: I08.8 Other rheumatic multiple valve diseases (principal) | CPT/HCPCS: 93306 ==

== ENCOUNTER 2020-10-17 01:30 | Emergency (ER) | payer MEDICARE ==
[~2020-10-17] VITALS: Ht 149.9 cm; Wt 77.0 kg
[~2020-10-17 01:30] MED LIST changes: -ALBU8.5H8 INH; -ASPI-611 PO; +LOP12.5T PO; -METF-950 PO; -METO25TA6 PO; -NIFE-34 PO; -NITR0.4T51 SL; -POTA20TA19 PO; +SPIR25TA PO; +WARF-65 PO
[2020-10-17 03:30] LABS: BASOPHILS # (AUTO) 0.1 X10'3 (0-0.2); BASOPHILS % (AUTO) 1.1 % (0-1); EOSINOPHILS # (AUTO) 0.1 X10'3 (0-0.9); EOSINOPHILS % (AUTO) 1.6 % (0-6); HEMATOCRIT 29.2 % (35.0-45.0); HEMOGLOBIN 9.5 g/dl (12.0-16.0); LYMPHOCYTES # (AUTO) 0.9 X10'3 (1.1-4.8); LYMPHOCYTES % (AUTO) 15.6 % (21-51); MEAN CORPUSCULAR HEMOGLOBIN 29.9 PG (27.0-31.0); MEAN CORPUSCULAR HGB CONC 32.7 g/dL (33.0-36.5); MEAN CORPUSCULAR VOLUME 91.7 FL (78-98); MEAN PLATELET VOLUME 7.8 FL (7.4-10.4); MONOCYTES # (AUTO) 1.2 X10'3 (0-0.9); MONOCYTES % (AUTO) 19.8 % (2-12); NEUTROPHILS # (AUTO) 3.7 X10'3 (1.8-7.7); NEUTROPHILS % (AUTO) 61.9 % (42-75); PLATELET COUNT 282 X10'3 (140-440); RED BLOOD COUNT 3.18 X10'6 (4.20-5.60); RED CELL DISTRIBUTION WIDTH 16.3 % (11.5-14.5); WHITE BLOOD COUNT 5.9 X10'3 (4.5-11.0)
[2020-10-17 03:52] LABS: ANION GAP 6 (8-16); CHLORIDE 90 MMOL/L (99-107); GLUCOSE 101 MG/DL (70-104); POTASSIUM 4.9 MMOL/L (3.5-5.1); SODIUM 125 MMOL/L (135-145); TOTAL CARBON DIOXIDE 28.6 MMOL/L (24-32)
[2020-10-17 03:53] LABS: ALANINE AMINOTRANSFERASE 18 U/L (12-78); ALBUMIN 2.8 G/DL (3.4-5.0); ALBUMIN/GLOBULIN RATIO 0.8 (1.1-1.5); ALKALINE PHOSPHATASE 123 IU/L (46-116); ASPARTATE AMINO TRANSFERASE 32 U/L (10-37); BILIRUBIN,TOTAL 0.6 MG/DL (0.1-1.0); BLOOD UREA NITROGEN 26 MG/DL (7-18); CREATININE 1.24 MG/DL (0.40-0.90); LIPASE 106 U/L (73-393); TOTAL PROTEIN 6.4 G/DL (6.4-8.2); eGFR 41 ML/MIN
[2020-10-17 04:47] LABS: ANISOCYTOSIS 1+; PLATELET ESTIMATE NORMAL; TOTAL CELLS COUNTED 100
[2020-10-17 04:48] LABS: ELLIPTOCYTES FEW; HYPOCHROMASIA 1+
[2020-10-17] MEDS ORDERED: CefTRIAXone/D5W-Rocephin 1gm 50 ML IV ONE (05:05)
--- NOTE | 2020-10-17 05:20 | NUR ---
Paracentesis performed by . 1650 ML of cloudy fluid removed. Cannula removed, pressure applied with sterile gauze. Injection site covered by .
[2020-10-17 05:22] VITALS: BP_DIAS 76
[2020-10-17] MEDS ORDERED: furosemide 10 MG/1 ML 10ml inj IV ONE (05:45)
[2020-10-17 05:51] LABS: LYMPHOCYTES,BODY FLUID 61 %; MONOCYTES,BODY FLUID 13 %; NEUTROPHILS,BODY FLUID 26 %
[2020-10-17 05:53] LABS: BF MESOTHELIAL CELLS FEW
[2020-10-17 05:54] LABS: BF RBC COUNT 2970 /CU MM; BF WBC COUNT 430 /CU MM (0-1000); BFAPPEAR CLOUDY; BFCOLOR YELLOW; BFVOLUME 60 ML
[2020-10-17] MEDS ORDERED: magnesium hydroxide 30ml (MOM) UD suspension PO PRN (06:35)
[2020-10-17] MEDS ORDERED: magnesium Cl slow-release 64mg tablet PO PRN (06:35)
[2020-10-17] MEDS ORDERED: ondansetron/PF 4mg/2ml inj IV PRN (06:35)
[2020-10-17] MEDS ORDERED: mag hydrox/Alum hydrox/simeth 30ml oral suspension PO PRN (06:35)
[2020-10-17] MEDS ORDERED: acetaminophen 325mg tablet PO PRN ×2 (06:35)
[2020-10-17] MEDS ORDERED: potassium Cl 20 mEq SR tablet PO PRN ×2 (06:35)
[2020-10-17] MEDS ORDERED: magnesium 2GM in 50ml NS 50 ML IV PRN (06:35)
[2020-10-17] MEDS ORDERED: magnesium 4gm in 100ml NS 100 ML IV PRN (06:35)
[2020-10-17] MEDS ORDERED: potassium Cl 40MEQ/1/2NS 520ml 520 ML IV PRN ×2 (06:35)
[2020-10-17] MEDS ORDERED: normal saline 1000ml 1,000 ML IV SCH (06:35)
[2020-10-17] MEDS ORDERED: dextrose ORAL solution 15 GM/59 ML bottle PO PRN ×2 (06:50)
[2020-10-17] MEDS ORDERED: glucagon, human recombinant 1mg kit SUBCUT PRN (06:50)
[2020-10-17] MEDS ORDERED: insulin Lispro (HumaLOG) vial - multi-dose SQ SCH (06:50)
[2020-10-17] MEDS ORDERED: dextrose 50%-water 50ml dispensing syringe IV PRN ×2 (06:50)
[2020-10-17] MEDS ORDERED: MESSAGE TO PHARMACY PO ONE (06:50)
[2020-10-17] MEDS ORDERED: FURO40TA4 PO (07:28)
[2020-10-17] MEDS ORDERED: SPIR25TA5 PO (07:28)
[2020-10-17] MEDS ORDERED: METO25TA6 PO (07:28)
[2020-10-17] MEDS ORDERED: furosemide 40mg/4ml inj IV SCH (08:00)
[2020-10-17] MEDS ORDERED: K and/or MAG REPLACEMENT MC SCH (08:00)
[2020-10-17] MEDS ORDERED: heparin, porcine 5000 units/ml vial SQ SCH (08:00)
[2020-10-17] MEDS ORDERED: sodium chloride 1gm tablet PO SCH (08:00)
[2020-10-17] MEDS ORDERED: non-formulary drug (Alendronate Sodium 1 TAB) PO SCH (08:15)
[2020-10-17] MEDS ORDERED: warfarin 4mg tablet PO SCH (08:15)
[2020-10-17] MEDS ORDERED: levoTHYROXINE 75mcg tablet PO SCH (08:24)
[2020-10-17] MEDS ORDERED: furosemide 40mg tablet PO SCH (08:25)
[2020-10-17] MEDS ORDERED: metoprolol tartrate 12.5mg (1/2 tablet) PO SCH (08:26)
[2020-10-17 10:40] VITALS: BP_SYST 124
[2020-10-17] MEDS ORDERED: gabapentin 100mg capsule PO SCH (20:00)
[2020-10-17] MEDS ORDERED: spironolactone 25 MG tablet PO SCH (20:00)
[2020-10-17] MEDS ORDERED: beta-carotene(A) w/C & E + minerals tab PO SCH (20:00)
[2020-10-17] MEDS ORDERED: insulin glargine (Lantus) pen - multi-dose SQ SCH (21:00)
[2020-10-17] MEDS ORDERED: atorvastatin 20mg tablet PO SCH (21:00)
[2020-10-17] MEDS ORDERED: temazepam 15mg capsule PO PRN (21:00)
[2020-10-18] MEDS ORDERED: multivitamins, therapeutics tablet PO SCH (08:00)
[2020-10-18] MEDS ORDERED: warfarin 1mg tablet PO SCH (08:15)
[2020-10-24] MEDS ORDERED: FURO40TA4 PO ×2 (09:19)
[2020-11-01] MEDS ORDERED: POTA20TA19 PO (10:58)
[2020-11-01] MEDS ORDERED: BUME2TAB7 PO (10:58)
[2020-11-01] MEDS ORDERED: FURO-149 PO (10:58)
[2020-11-01] MEDS ORDERED: SPIR25TA5 PO (10:58)
== END 2020-10-17 15:02 | disposition home or self-care (01) ==
LOC: ER 01:30 → UNDOADMOB 06:35 → ED HOLD 06:35 → UNDODISOB 13:30
DX: R18.8 Other ascites (principal); I25.10 Atherosclerotic heart disease of native coronary artery without angina pectoris; R41.3 Other amnesia; E78.00 Pure hypercholesterolemia, unspecified; I25.2 Old myocardial infarction; E11.9 Type 2 diabetes mellitus without complications; M19.90 Unspecified osteoarthritis, unspecified site; G89.29 Other chronic pain; M06.9 Rheumatoid arthritis, unspecified; E03.9 Hypothyroidism, unspecified; E11.43 Type 2 diabetes mellitus with diabetic autonomic (poly)neuropathy; I48.0 Paroxysmal atrial fibrillation; I11.0 Hypertensive heart disease with heart failure; I50.9 Heart failure, unspecified; Z85.3 Personal history of malignant neoplasm of breast; Z98.891 History of uterine scar from previous surgery; Z98.890 Other specified postprocedural states
CPT/HCPCS: 36415; 49083; 76705; 80053; 82948; 83690; 83930; 85007; 85025; 87070; 89051; 96361; 96365; 96372; 96375; 99285; J0696; J1644; J1815; J1940; J7030; 88108; 88305; G0378

== ENCOUNTER 2020-11-13 11:26 | Emergency (ER) | payer MEDICARE ==
[~2020-11-13] VITALS: Ht 149.9 cm; Wt 97.6 kg
[~2020-11-13 11:26] MED LIST changes: +BUME2TAB7 PO; +FURO-149 PO; -FURO40TA4 PO; -LOP12.5T PO; +METO25TA6 PO; +POTA20TA19 PO; -SPIR25TA PO; +SPIR25TA5 PO
[2020-11-13 14:34] LABS: BASOPHILS # (AUTO) 0.1 X10'3 (0-0.2); BASOPHILS % (AUTO) 1.1 % (0-1); EOSINOPHILS % (AUTO) 0.8 % (0-6); HEMATOCRIT 32.2 % (35.0-45.0); HEMOGLOBIN 10.7 g/dl (12.0-16.0); LYMPHOCYTES # (AUTO) 0.9 X10'3 (1.1-4.8); LYMPHOCYTES % (AUTO) 17.7 % (21-51); MEAN CORPUSCULAR HGB CONC 33.4 g/dL (33.0-36.5); MEAN PLATELET VOLUME 7.6 FL (7.4-10.4); NEUTROPHILS # (AUTO) 3.2 X10'3 (1.8-7.7); NEUTROPHILS % (AUTO) 61.4 % (42-75); PLATELET COUNT 232 X10'3 (140-440); RED BLOOD COUNT 3.83 X10'6 (4.20-5.60); RED CELL DISTRIBUTION WIDTH 16.2 % (11.5-14.5); WHITE BLOOD COUNT 5.3 X10'3 (4.5-11.0)
[2020-11-13 14:36] LABS: ALANINE AMINOTRANSFERASE 19 U/L (12-78); ALBUMIN 2.9 G/DL (3.4-5.0); ALBUMIN/GLOBULIN RATIO 0.7 (1.1-1.5); ALKALINE PHOSPHATASE 149 IU/L (46-116); ANION GAP 7 (8-16); ASPARTATE AMINO TRANSFERASE 32 U/L (10-37); BILIRUBIN,TOTAL 0.7 MG/DL (0.1-1.0); BLOOD UREA NITROGEN 25 MG/DL (7-18); BUN/CREATININE RATIO 20.3 (6.6-38.0); CALCIUM 8.1 MG/DL (8.5-10.1); CHLORIDE 91 MMOL/L (99-107); CREATININE 1.23 MG/DL (0.40-0.90); GLUCOSE 98 MG/DL (70-104); POTASSIUM 4.2 MMOL/L (3.5-5.1); SODIUM 125 MMOL/L (135-145); TOTAL CARBON DIOXIDE 27.3 MMOL/L (24-32); eGFR 41 ML/MIN
[2020-11-13 15:21] LABS: ANISOCYTOSIS 1+; PLATELET ESTIMATE NORMAL; TOTAL CELLS COUNTED 100
[2020-11-13 15:22] LABS: BURR CELLS FEW; ELLIPTOCYTES FEW; MICROCYTOSIS 1+
[2020-11-13] MEDS ORDERED: ipratropium/albuterol 3ml nebule NEB ONE (15:30)
[2020-11-13] MEDS ORDERED: furosemide 10 MG/1 ML 10ml inj IV ONE (15:30)
[2020-11-13 16:54] VITALS: BP 123/71
== END 2020-11-13 16:56 | disposition home or self-care (01) ==
LOC: ER 11:27
DX: J90 Pleural effusion, not elsewhere classified (principal); R41.0 Disorientation, unspecified; I50.9 Heart failure, unspecified; R63.5 Abnormal weight gain; E87.1 Hypo-osmolality and hyponatremia; I25.10 Atherosclerotic heart disease of native coronary artery without angina pectoris; E78.00 Pure hypercholesterolemia, unspecified; I25.2 Old myocardial infarction; E11.9 Type 2 diabetes mellitus without complications; M19.90 Unspecified osteoarthritis, unspecified site; G89.29 Other chronic pain; Z85.3 Personal history of malignant neoplasm of breast; Z98.890 Other specified postprocedural states; Z60.2 Problems related to living alone; Z88.5 Allergy status to narcotic agent; Z88.8 Allergy status to other drugs, medicaments and biological substances; Z79.899 Other long term (current) drug therapy
CPT/HCPCS: 36415; 71045; 80053; 83880; 84484; 85007; 85025; 93005; 94640; 96374; 99285; J1940; 94760

== ENCOUNTER 2020-11-18 07:47 | Day surgery (SDC) | payer MEDICARE ==
[~2020-11-18] VITALS: Ht 149.9 cm; Wt 88.3 kg
[2020-11-18] VITALS (10 sets, daily range): BP systolic 101–138; BP diastolic 61–85
[2020-11-18] MEDS ORDERED: FURO40TA4 PO (08:36)
[2020-11-18] MEDS ORDERED: albumin 25% 100mL bottle x 1 IV PRN (08:40)
== END 2020-11-18 11:54 | disposition home or self-care (01) ==
LOC: SSTAY O 07:47
PROVIDERS: ATTEND Radiology Vascular & Interventional Radiology
DX: R18.8 Other ascites (principal); R14.0 Abdominal distension (gaseous); E78.00 Pure hypercholesterolemia, unspecified; I25.10 Atherosclerotic heart disease of native coronary artery without angina pectoris; I50.9 Heart failure, unspecified; I25.2 Old myocardial infarction; E11.9 Type 2 diabetes mellitus without complications; M19.90 Unspecified osteoarthritis, unspecified site; G89.29 Other chronic pain; M06.9 Rheumatoid arthritis, unspecified; Z85.3 Personal history of malignant neoplasm of breast; Z88.8 Allergy status to other drugs, medicaments and biological substances; Z88.5 Allergy status to narcotic agent; Z79.01 Long term (current) use of anticoagulants; Z79.899 Other long term (current) drug therapy; Z82.49 Family history of ischemic heart disease and other diseases of the circulatory system
CPT/HCPCS: 36415; 49083; 85610

== ENCOUNTER 2020-12-07 01:20 | Emergency (ER) | payer MEDICARE ==
[~2020-12-07] VITALS: Ht 157.5 cm; Wt 87.3 kg
[~2020-12-07 01:20] MED LIST changes: -FURO-149 PO; +FURO40TA4 PO
[2020-12-07 03:19] VITALS: BP 134/78
== END 2020-12-07 03:22 | disposition home or self-care (01) ==
LOC: ER 01:21
DX: R18.8 Other ascites (principal); R06.02 Shortness of breath; I25.10 Atherosclerotic heart disease of native coronary artery without angina pectoris; I50.9 Heart failure, unspecified; E78.00 Pure hypercholesterolemia, unspecified; I25.2 Old myocardial infarction; E11.9 Type 2 diabetes mellitus without complications; M19.90 Unspecified osteoarthritis, unspecified site; G89.29 Other chronic pain; Z85.3 Personal history of malignant neoplasm of breast; Z60.2 Problems related to living alone; Z98.890 Other specified postprocedural states; Z88.5 Allergy status to narcotic agent; Z88.8 Allergy status to other drugs, medicaments and biological substances; Z79.899 Other long term (current) drug therapy
CPT/HCPCS: 49083; 99285

== ENCOUNTER → 2020-12-22 | Emergency (ER) | payer MEDICARE ==
[~2020-12-22] VITALS: Ht 149.9 cm; Wt 85.3 kg
[2020-12-22 10:07] VITALS: BP 129/60
== END | disposition left against medical advice (07) ==
LOC: ER 09:44
DX: R18.8 Other ascites (principal); Z53.21 Procedure and treatment not carried out due to patient leaving prior to being seen by health care provider

== ENCOUNTER 2020-12-27 08:33 | Emergency (ER) | payer MEDICARE ==
[~2020-12-27] VITALS: Ht 149.9 cm; Wt 85.8 kg
[2020-12-27 10:06] LABS: BASOPHILS % (AUTO) 0.7 % (0-1); EOSINOPHILS # (AUTO) 0.1 X10'3 (0-0.9); HEMOGLOBIN 10.9 g/dl (12.0-16.0); LYMPHOCYTES # (AUTO) 0.8 X10'3 (1.1-4.8); LYMPHOCYTES % (AUTO) 11.9 % (21-51); MEAN CORPUSCULAR HEMOGLOBIN 26.7 PG (27.0-31.0); MEAN PLATELET VOLUME 7.1 FL (7.4-10.4); MONOCYTES # (AUTO) 1.2 X10'3 (0-0.9); MONOCYTES % (AUTO) 16.9 % (2-12); NEUTROPHILS # (AUTO) 4.8 X10'3 (1.8-7.7); NEUTROPHILS % (AUTO) 69.5 % (42-75); PLATELET COUNT 279 X10'3 (140-440); RED BLOOD COUNT 4.07 X10'6 (4.20-5.60); RED CELL DISTRIBUTION WIDTH 18.7 % (11.5-14.5); WHITE BLOOD COUNT 6.9 X10'3 (4.5-11.0)
[2020-12-27 10:17] LABS: ALANINE AMINOTRANSFERASE 18 U/L (12-78); ALBUMIN 2.6 G/DL (3.4-5.0); ALBUMIN/GLOBULIN RATIO 0.6 (1.1-1.5); ALKALINE PHOSPHATASE 140 IU/L (46-116); ANION GAP 6 (8-16); ASPARTATE AMINO TRANSFERASE 27 U/L (10-37); BILIRUBIN,TOTAL 0.7 MG/DL (0.1-1.0); BLOOD UREA NITROGEN 21 MG/DL (7-18); CALCIUM 7.9 MG/DL (8.5-10.1); CHLORIDE 90 MMOL/L (99-107); CREATININE 1.31 MG/DL (0.40-0.90); GLUCOSE 107 MG/DL (70-104); POTASSIUM 4.1 MMOL/L (3.5-5.1); SODIUM 126 MMOL/L (135-145); TOTAL CARBON DIOXIDE 29.6 MMOL/L (24-32); TOTAL PROTEIN 7.2 G/DL (6.4-8.2); eGFR 38 ML/MIN
[2020-12-27] MEDS ORDERED: albumin (human) 25% 100ml IV 100 ML IV ONE (10:25)
[2020-12-27] MEDS ORDERED: furosemide 10 MG/1 ML 10ml inj IV ONE (10:25)
[2020-12-27 10:43] VITALS: BP 121/73
[2020-12-27 11:04] LABS: ANISOCYTOSIS 2+; BURR CELLS 5; ELLIPTOCYTES FEW; PLATELET ESTIMATE NORMAL; TOTAL CELLS COUNTED 100
== END 2020-12-27 12:05 | disposition home or self-care (01) ==
LOC: ER 08:35
DX: R18.8 Other ascites (principal); R06.00 Dyspnea, unspecified; R26.2 Difficulty in walking, not elsewhere classified; R63.5 Abnormal weight gain; I25.10 Atherosclerotic heart disease of native coronary artery without angina pectoris; E78.00 Pure hypercholesterolemia, unspecified; I25.2 Old myocardial infarction; E11.9 Type 2 diabetes mellitus without complications; M19.90 Unspecified osteoarthritis, unspecified site; G89.29 Other chronic pain; M06.9 Rheumatoid arthritis, unspecified; Z85.3 Personal history of malignant neoplasm of breast; Z86.718 Personal history of other venous thrombosis and embolism; Z88.8 Allergy status to other drugs, medicaments and biological substances; Z79.01 Long term (current) use of anticoagulants
CPT/HCPCS: 49083; 80053; 85007; 85025; 85610; 96365; 96375; 99285; J1940; P9047

== ENCOUNTER 2021-01-02 07:50 | Day surgery (SDC) | payer MEDICARE ==
[~2021-01-02] VITALS: Ht 149.9 cm; Wt 90.2 kg
[2021-01-02] MEDS ORDERED: albumin 25% 100mL bottle x 1 IV PRN (08:25)
[2021-01-02 08:36] VITALS: BP 142/72
[2021-01-02 09:30] VITALS: BP 120/65
[2021-01-02 09:45] VITALS: BP 124/59
[2021-01-02 10:00] VITALS: BP 111/65
[2021-01-02 10:15] VITALS: BP 109/80
[2021-01-02 10:20] VITALS: BP 112/76
== END 2021-01-02 10:20 | disposition home or self-care (01) ==
LOC: SSTAY O 07:50
PROVIDERS: ATTEND Preventive Medicine Aerospace Medicine
DX: R18.8 Other ascites (principal); R14.0 Abdominal distension (gaseous); I25.10 Atherosclerotic heart disease of native coronary artery without angina pectoris; I50.9 Heart failure, unspecified; E78.00 Pure hypercholesterolemia, unspecified; I25.2 Old myocardial infarction; E11.9 Type 2 diabetes mellitus without complications; M19.90 Unspecified osteoarthritis, unspecified site; G89.29 Other chronic pain; M06.9 Rheumatoid arthritis, unspecified; Z85.3 Personal history of malignant neoplasm of breast; Z98.890 Other specified postprocedural states; Z88.5 Allergy status to narcotic agent; Z88.8 Allergy status to other drugs, medicaments and biological substances; Z79.899 Other long term (current) drug therapy; Z79.01 Long term (current) use of anticoagulants; Z82.49 Family history of ischemic heart disease and other diseases of the circulatory system
CPT/HCPCS: 36415; 49083; 85610

== ENCOUNTER 2021-02-03 10:08 | Inpatient (IN) | payer MEDICARE ==
[~2021-02-03] VITALS: Ht 160 cm; Wt 99.5 kg
[~2021-02-03 10:08] MED LIST changes: +POTA-207 PO; -POTA20TA19 PO
[2021-02-03] MEDS ORDERED: nitroGLYCERIN 0.4mg/hour patch TD ONE (10:45)
[2021-02-03] MEDS ORDERED: furosemide 40mg/4ml inj IV ONE (10:45)
[2021-02-03 12:29] LABS: CLARITY,URINE CLOUDY (Clear); COLOR,URINE YELLOW (Yellow); UA COLLECTION TYPE OTHER
[2021-02-03 12:30] LABS: GLUCOSE, URINE 100 mg/dl (Neg); KETONES,URINE NEGATIVE (Neg); LEUKOCYTE ESTERASE ,URINE NEGATIVE (Neg); NITRITES, URINE NEGATIVE (Neg); OCCULT BLOOD,URINE MODERATE (Neg); PROTEIN,URINE 300 mg/dl (Neg); UROBILINOGEN,URINE 0.2 E.U/dL (0.2-1.0)
[2021-02-03 12:34] LABS: MUCUS STRANDS FEW /LPF (Neg); SQUAMOUS EPITHELIAL CELL,UR FEW /LPF (FEW)
[2021-02-03 12:35] LABS: BACTERIA,URINE 3+ /HPF (Neg); RBC,URINE 0-2 /HPF (0-2); WBC,URINE 0-4 /HPF (0-4)
[2021-02-03 12:41] LABS: BASOPHILS # (AUTO) 0.1 X10'3 (0-0.2); EOSINOPHILS # (AUTO) 0.2 X10'3 (0-0.9); EOSINOPHILS % (AUTO) 3.1 % (0-6); HEMATOCRIT 25.2 % (35.0-45.0); HEMOGLOBIN 8.3 g/dl (12.0-16.0); LYMPHOCYTES # (AUTO) 0.9 X10'3 (1.1-4.8); LYMPHOCYTES % (AUTO) 13.6 % (21-51); MEAN CORPUSCULAR HGB CONC 32.8 g/dL (33.0-36.5); MEAN CORPUSCULAR VOLUME 79.4 FL (78-98); MEAN PLATELET VOLUME 7.1 FL (7.4-10.4); MONOCYTES # (AUTO) 1.2 X10'3 (0-0.9); MONOCYTES % (AUTO) 17.8 % (2-12); NEUTROPHILS # (AUTO) 4.5 X10'3 (1.8-7.7); NEUTROPHILS % (AUTO) 64.5 % (42-75); PLATELET COUNT 282 X10'3 (140-440); RED BLOOD COUNT 3.18 X10'6 (4.20-5.60); RED CELL DISTRIBUTION WIDTH 19.6 % (11.5-14.5); WHITE BLOOD COUNT 6.9 X10'3 (4.5-11.0)
[2021-02-03 12:57] LABS: ALBUMIN 2.6 G/DL (3.4-5.0); ALKALINE PHOSPHATASE 87 IU/L (46-116); CALCIUM 7.9 MG/DL (8.5-10.1); CHLORIDE 91 MMOL/L (99-107); GLUCOSE 90 MG/DL (70-104); LIPASE 302 U/L (73-393); POTASSIUM 4.8 MMOL/L (3.5-5.1); SODIUM 128 MMOL/L (135-145)
[2021-02-03 13:04] LABS: ALANINE AMINOTRANSFERASE 22 U/L (12-78); ALBUMIN/GLOBULIN RATIO 0.7 (1.1-1.5); ANION GAP 8 (8-16); ASPARTATE AMINO TRANSFERASE 29 U/L (10-37); BILIRUBIN,TOTAL 0.4 MG/DL (0.1-1.0); CREATININE 1.12 MG/DL (0.40-0.90); MAGNESIUM 1.8 MG/DL (1.5-2.4); TOTAL CARBON DIOXIDE 28.6 MMOL/L (24-32); TOTAL PROTEIN 6.2 G/DL (6.4-8.2); eGFR 46 ML/MIN
--- NOTE | 2021-02-03 13:06 | NUR ---
pt constantly yelling out that she is short of breath. several staff members have tried to talk with pt that she is stable but does not understand. daughter called and also tried to talk with pt but still yelling out.
[2021-02-03 13:23] LABS: BLOOD UREA NITROGEN 26 MG/DL (7-18); BUN/CREATININE RATIO 23.2 (6.6-38.0)
[2021-02-03 13:25] LABS: PLATELET ESTIMATE NORMAL
[2021-02-03 13:26] LABS: ANISOCYTOSIS 2+; BURR CELLS 1+; ELLIPTOCYTES 1+; HYPOCHROMASIA 1+; MICROCYTOSIS 1+; POLYCHROMASIA 1+; SCHISTOCYTES FEW
--- NOTE | 2021-02-03 13:41 | NUR ---
ULTRASOUND RN STATED SHE WOULD HERE SHORTLY TO TRY AND PLACE IV FOR MEDICATIONS
[2021-02-03] MEDS ORDERED: acetaminophen 325mg tablet PO PRN ×2 (13:45)
[2021-02-03] MEDS ORDERED: magnesium Cl slow-release 64mg tablet PO PRN (13:45)
[2021-02-03] MEDS ORDERED: magnesium 4gm in 100ml NS 100 ML IV PRN (13:45)
[2021-02-03] MEDS ORDERED: HYDROcodone/acetaminophen 10/325mg tab PO PRN (13:45)
[2021-02-03] MEDS ORDERED: magnesium hydroxide 30ml (MOM) UD suspension PO PRN ×2 (13:45→15:00)
[2021-02-03] MEDS ORDERED: ondansetron/PF 4mg/2ml inj IV PRN (13:45)
[2021-02-03] MEDS ORDERED: potassium Cl 20 mEq SR tablet PO PRN ×2 (13:45)
[2021-02-03] MEDS ORDERED: mag hydrox/Alum hydrox/simeth 30ml oral suspension PO PRN (13:45)
[2021-02-03] MEDS ORDERED: potassium Cl 40MEQ/1/2NS 520ml 520 ML IV PRN ×2 (13:45)
[2021-02-03] MEDS ORDERED: magnesium 2GM in 50ml NS 50 ML IV PRN (13:45)
[2021-02-03] MEDS ORDERED: bisacodyl 10mg suppository rectal RC PRN (13:45)
--- NOTE | 2021-02-03 14:14 | NUR ---
ultrasound nurse at bedside trying for access. daughter at bedside
[2021-02-03] MEDS ORDERED: SIME80TA16 PO (14:44)
[2021-02-03] MEDS ORDERED: GUAI600T45 PO (14:44)
[2021-02-03] MEDS ORDERED: FLUD0.1T PO (14:44)
[2021-02-03] MEDS ORDERED: POLY119P2 PO (14:44)
[2021-02-03] MEDS ORDERED: FAMO20TA8 PO (14:44)
[2021-02-03] MEDS ORDERED: RIVA20TA PO (14:44)
[2021-02-03] MEDS ORDERED: ACET325T59 PO (14:48)
[2021-02-03] MEDS ORDERED: MAGN400O6 PO (14:48)
[2021-02-03] MEDS ORDERED: HYDR-3972 PO (14:48)
[2021-02-03] MEDS: HYDROcodone/acetaminophen 5mg/325mg tablet PO PRN ×2 (16:46→22:54)
[2021-02-03] MEDS: rivaroxaban 20mg tablet PO SCH (18:17)
[2021-02-03 20:16] VITALS: BP 128/56
[2021-02-03] MEDS ORDERED: temazepam 15mg capsule PO PRN (21:00)
[2021-02-03 22:00] VITALS: BP 96/48
[2021-02-03 22:15] VITALS: BP 108/63
[2021-02-03] MEDS: gabapentin 100mg capsule PO SCH (22:47)
[2021-02-03] MEDS: furosemide 40mg/4ml inj IV SCH (22:47)
[2021-02-03] MEDS: fludrocortisone acetate 0.1mg tablet PO SCH (22:47)
[2021-02-03] MEDS: docusate sod 100mg capsule PO SCH (22:47)
[2021-02-03] MEDS: metoprolol tartrate 12.5mg (1/2 tablet) PO SCH (22:47)
--- NOTE | 2021-02-04 00:05 | NUR ---
Yelling out constantly, "my butt hurts". Pt incontinent of urine, pericare provided. External female catheter placed. Re-oriented to time and place.
--- NOTE | 2021-02-04 03:17 | NUR ---
Yelling out, "come and help me" Reposition on left side. Left arm edematous weeping light yellowish content. Clean pad place under arm and elevated on pillow.
[2021-02-04 06:00] VITALS: BP 120/54
--- NOTE | 2021-02-04 06:28 | NUR ---
Patient in room PCU 3016. I have received report from MATHEUS GRAHAM, and had the opportunity to ask questions and assume patient care.
[2021-02-04 06:29] LABS: BASOPHILS # (AUTO) 0.1 X10'3 (0-0.2); BASOPHILS % (AUTO) 1.1 % (0-1); EOSINOPHILS # (AUTO) 0.3 X10'3 (0-0.9); EOSINOPHILS % (AUTO) 4.4 % (0-6); HEMOGLOBIN 7.1 g/dl (12.0-16.0); LYMPHOCYTES # (AUTO) 0.9 X10'3 (1.1-4.8); LYMPHOCYTES % (AUTO) 14.7 % (21-51); MEAN CORPUSCULAR HEMOGLOBIN 25.4 PG (27.0-31.0); MEAN CORPUSCULAR HGB CONC 32.6 g/dL (33.0-36.5); MEAN CORPUSCULAR VOLUME 78.1 FL (78-98); MEAN PLATELET VOLUME 6.7 FL (7.4-10.4); MONOCYTES # (AUTO) 1.1 X10'3 (0-0.9); MONOCYTES % (AUTO) 17.9 % (2-12); NEUTROPHILS # (AUTO) 3.9 X10'3 (1.8-7.7); NEUTROPHILS % (AUTO) 61.9 % (42-75); PLATELET COUNT 269 X10'3 (140-440); RED CELL DISTRIBUTION WIDTH 19.7 % (11.5-14.5); WHITE BLOOD COUNT 6.3 X10'3 (4.5-11.0)
[2021-02-04 06:39] LABS: HEMATOCRIT 21.9 % (35.0-45.0)
--- NOTE | 2021-02-04 06:42 | NUR ---
PAGE SENT PAGER ID: [phone] MESSAGE: [id number], ARIS NOVA, CRITICAL LAB, HCT 21.9, HGB 7.1. THANK YOU, BREANNE.
[2021-02-04 06:56] LABS: ALANINE AMINOTRANSFERASE 13 U/L (12-78); ALBUMIN 2.3 G/DL (3.4-5.0); ALBUMIN/GLOBULIN RATIO 0.7 (1.1-1.5); ALKALINE PHOSPHATASE 81 IU/L (46-116); ANION GAP 4 (8-16); ASPARTATE AMINO TRANSFERASE 26 U/L (10-37); BILIRUBIN,TOTAL 0.7 MG/DL (0.1-1.0); BLOOD UREA NITROGEN 25 MG/DL (7-18); BUN/CREATININE RATIO 19.8 (6.6-38.0); CALCIUM 7.7 MG/DL (8.5-10.1); CHLORIDE 96 MMOL/L (99-107); CREATININE 1.26 MG/DL (0.40-0.90); GLUCOSE 105 MG/DL (70-104); MAGNESIUM 1.9 MG/DL (1.5-2.4); POTASSIUM 4.8 MMOL/L (3.5-5.1); SODIUM 129 MMOL/L (135-145); TOTAL CARBON DIOXIDE 29.4 MMOL/L (24-32); TOTAL PROTEIN 5.5 G/DL (6.4-8.2); eGFR 40 ML/MIN
[2021-02-04 07:33] LABS: ANISOCYTOSIS 2+; MICROCYTOSIS 1+; PLATELET ESTIMATE NORMAL
[2021-02-04 07:34] LABS: ELLIPTOCYTES FEW; POIKILOCYTOSIS FEW
[2021-02-04] MEDS: K and/or MAG REPLACEMENT MC SCH ×2 (08:00→20:00)
[2021-02-04] MEDS: furosemide 40mg/4ml inj IV SCH ×2 (08:21→21:18)
[2021-02-04] MEDS: spironolactone 25 MG tablet PO SCH (08:21)
[2021-02-04] MEDS: levoTHYROXINE 75mcg tablet PO SCH (08:22)
[2021-02-04] MEDS: famotidine 20mg tablet PO SCH (08:22)
[2021-02-04] MEDS: docusate sod 100mg capsule PO SCH ×2 (08:22→21:18)
[2021-02-04] MEDS: gabapentin 100mg capsule PO SCH ×2 (08:22→21:19)
[2021-02-04] MEDS: metoprolol tartrate 12.5mg (1/2 tablet) PO SCH ×2 (08:22→21:34)
[2021-02-04] MEDS: fludrocortisone acetate 0.1mg tablet PO SCH ×2 (08:23→21:18)
[2021-02-04] MEDS: CefTRIAXone/D5W-Rocephin 1gm 50 ML IV SCH (09:41)
[2021-02-04 11:00] VITALS: BP 104/53
[2021-02-04 15:00] VITALS: BP 114/49
[2021-02-04] MEDS: rivaroxaban 20mg tablet PO SCH (17:50)
[2021-02-04 18:00] VITALS: BP 105/51
--- NOTE | 2021-02-04 18:27 | NUR ---
Patient in room PCU 3016. I have received report from Genia JARVIS and had the opportunity to ask questions and assume patient care.
--- NOTE | 2021-02-04 19:22 | NUR ---
Problems reprioritized. Patient report given, questions answered & plan of care reviewed with MATHEUS BLANDON.
[2021-02-04] MEDS: lactobacillus rhamnosus 10,000 MMU CELLS/CAPSULE PO SCH (21:19)
[2021-02-04] MEDS: HYDROcodone/acetaminophen 5mg/325mg tablet PO PRN (21:25)
[2021-02-04 21:29] VITALS: BP 129/56
[2021-02-04 23:00] VITALS: BP 119/55
--- NOTE | 2021-02-05 05:15 | NUR ---
Patient has been yelling out on/off during noc shift. When asked what is wrong, pt. says in a mean voice "you don't care, you don't love me, I want out of here , I am going to pinch you, I am mean to you" After several attempts of trying to reassure patient that everyone here cares about her as well as all of our patients, she calms down, but then later on,starts up again. Patient was given restoril which helped her sleep for a couple of hours straight and then on/off. At 0515, patient awoke yelling out, and when nursing went in the room, found urostomy bag pulled off on floor. Extended IV pulled out and tel box and stickers totally remove. Cleaned up, repostioned and instructed to go back to sleep before day shift arrives. Patient laying in bed and yelling out periodically.
[2021-02-05 06:00] VITALS: BP 123/68
[2021-02-05 06:08] LABS: BASOPHILS # (AUTO) 0.1 X10'3 (0-0.2); EOSINOPHILS # (AUTO) 0.2 X10'3 (0-0.9); EOSINOPHILS % (AUTO) 3.7 % (0-6); HEMATOCRIT 24.1 % (35.0-45.0); HEMOGLOBIN 7.8 g/dl (12.0-16.0); LYMPHOCYTES # (AUTO) 1.1 X10'3 (1.1-4.8); LYMPHOCYTES % (AUTO) 16.6 % (21-51); MEAN CORPUSCULAR HEMOGLOBIN 25.8 PG (27.0-31.0); MEAN CORPUSCULAR HGB CONC 32.3 g/dL (33.0-36.5); MEAN CORPUSCULAR VOLUME 79.8 FL (78-98); MONOCYTES # (AUTO) 1.3 X10'3 (0-0.9); MONOCYTES % (AUTO) 19.9 % (2-12); NEUTROPHILS # (AUTO) 3.9 X10'3 (1.8-7.7); NEUTROPHILS % (AUTO) 58.8 % (42-75); PLATELET COUNT 275 X10'3 (140-440); RED BLOOD COUNT 3.02 X10'6 (4.20-5.60); WHITE BLOOD COUNT 6.6 X10'3 (4.5-11.0)
[2021-02-05 06:27] LABS: ALANINE AMINOTRANSFERASE 13 U/L (12-78); ALBUMIN 2.3 G/DL (3.4-5.0); ALBUMIN/GLOBULIN RATIO 0.7 (1.1-1.5); ALKALINE PHOSPHATASE 83 IU/L (46-116); ANION GAP 7 (8-16); ASPARTATE AMINO TRANSFERASE 32 U/L (10-37); BILIRUBIN,TOTAL 0.7 MG/DL (0.1-1.0); BLOOD UREA NITROGEN 25 MG/DL (7-18); BUN/CREATININE RATIO 20.5 (6.6-38.0); CALCIUM 7.8 MG/DL (8.5-10.1); CHLORIDE 95 MMOL/L (99-107); CREATININE 1.22 MG/DL (0.40-0.90); GLUCOSE 96 MG/DL (70-104); MAGNESIUM 1.8 MG/DL (1.5-2.4); SODIUM 129 MMOL/L (135-145); TOTAL PROTEIN 5.8 G/DL (6.4-8.2); eGFR 42 ML/MIN
--- NOTE | 2021-02-05 06:45 | NUR ---
Problems reprioritized. Patient report given, questions answered & plan of care reviewed with Derick JARVIS. Addendum: 02/05/21 at 1837 by Laquita Sandoval RN Actually, reported off to Genia JARVIS, not Derick.
--- NOTE | 2021-02-05 06:49 | NUR ---
Patient in room PCU 3016. I have received report from MATHEUS BLANDON, and had the opportunity to ask questions and assume patient care.
[2021-02-05] MEDS: K and/or MAG REPLACEMENT MC SCH ×2 (06:54→20:00)
[2021-02-05 07:47] LABS: ANISOCYTOSIS 2+; MICROCYTOSIS 1+; PLATELET ESTIMATE NORMAL; POIKILOCYTOSIS FEW
[2021-02-05 07:48] LABS: ELLIPTOCYTES FEW; HYPOCHROMASIA 1+; SCHISTOCYTES FEW
[2021-02-05] MEDS: lactobacillus rhamnosus 10,000 MMU CELLS/CAPSULE PO SCH ×2 (07:49→19:23)
[2021-02-05] MEDS: metoprolol tartrate 12.5mg (1/2 tablet) PO SCH ×2 (07:49→19:22)
[2021-02-05] MEDS: levoTHYROXINE 75mcg tablet PO SCH (07:49)
[2021-02-05] MEDS: fludrocortisone acetate 0.1mg tablet PO SCH ×2 (07:49→19:22)
[2021-02-05] MEDS: famotidine 20mg tablet PO SCH (07:49)
[2021-02-05] MEDS: gabapentin 100mg capsule PO SCH ×2 (07:50→19:21)
[2021-02-05] MEDS: spironolactone 25 MG tablet PO SCH (07:50)
[2021-02-05] MEDS: docusate sod 100mg capsule PO SCH ×2 (07:50→19:23)
[2021-02-05] MEDS: furosemide 40mg/4ml inj IV SCH ×2 (09:34→19:23)
[2021-02-05] MEDS: CefTRIAXone/D5W-Rocephin 1gm 50 ML IV SCH (09:34)
[2021-02-05] MEDS: levoFLOXACIN-Levaquin 250mg/D5 50 ML IV SCH (10:23)
[2021-02-05 11:00] VITALS: BP 124/78
[2021-02-05] MEDS: HYDROcodone/acetaminophen 5mg/325mg tablet PO PRN (11:26)
[2021-02-05 15:00] VITALS: BP 119/54
[2021-02-05 18:00] VITALS: BP 127/52
--- NOTE | 2021-02-05 18:32 | NUR ---
Problems reprioritized. Patient report given, questions answered & plan of care reviewed with MATHEUS ROBIN.
[2021-02-05] MEDS: rivaroxaban 20mg tablet PO SCH (19:23)
[2021-02-05 22:00] VITALS: BP 103/43
[2021-02-06] VITALS (7 sets, daily range): BP systolic 101–136; BP diastolic 45–78
--- NOTE | 2021-02-06 06:54 | NUR ---
Problems reprioritized. Patient report given, questions answered & plan of care reviewed with MATHEUS Braga.
[2021-02-06 07:14] LABS: BASOPHILS # (AUTO) 0.1 X10'3 (0-0.2); BASOPHILS % (AUTO) 0.9 % (0-1); EOSINOPHILS # (AUTO) 0.3 X10'3 (0-0.9); HEMATOCRIT 25.5 % (35.0-45.0); HEMOGLOBIN 8.1 g/dl (12.0-16.0); LYMPHOCYTES % (AUTO) 13.1 % (21-51); MEAN CORPUSCULAR HEMOGLOBIN 25.6 PG (27.0-31.0); MEAN CORPUSCULAR HGB CONC 31.8 g/dL (33.0-36.5); MEAN CORPUSCULAR VOLUME 80.5 FL (78-98); MONOCYTES # (AUTO) 1.3 X10'3 (0-0.9); MONOCYTES % (AUTO) 16.6 % (2-12); NEUTROPHILS % (AUTO) 65.4 % (42-75); PLATELET COUNT 254 X10'3 (140-440); RED BLOOD COUNT 3.17 X10'6 (4.20-5.60); RED CELL DISTRIBUTION WIDTH 19.4 % (11.5-14.5); WHITE BLOOD COUNT 7.6 X10'3 (4.5-11.0)
[2021-02-06] MEDS: levoFLOXACIN-Levaquin 250mg/D5 50 ML IV SCH (07:35)
[2021-02-06] MEDS: famotidine 20mg tablet PO SCH (07:36)
[2021-02-06] MEDS: gabapentin 100mg capsule PO SCH ×2 (07:36→19:53)
[2021-02-06] MEDS: fludrocortisone acetate 0.1mg tablet PO SCH ×2 (07:36→19:53)
[2021-02-06] MEDS: docusate sod 100mg capsule PO SCH ×2 (07:36→19:53)
[2021-02-06] MEDS: lactobacillus rhamnosus 10,000 MMU CELLS/CAPSULE PO SCH ×2 (07:37→19:53)
[2021-02-06] MEDS: levoTHYROXINE 75mcg tablet PO SCH (07:37)
[2021-02-06] MEDS: metoprolol tartrate 12.5mg (1/2 tablet) PO SCH ×2 (07:40→19:54)
[2021-02-06] MEDS: spironolactone 25 MG tablet PO SCH (07:41)
[2021-02-06] MEDS: furosemide 40mg/4ml inj IV SCH ×2 (07:42→19:53)
[2021-02-06 07:54] LABS: ALANINE AMINOTRANSFERASE 13 U/L (12-78); ALBUMIN 2.4 G/DL (3.4-5.0); ALBUMIN/GLOBULIN RATIO 0.6 (1.1-1.5); ALKALINE PHOSPHATASE 86 IU/L (46-116); ANION GAP 10 (8-16); ASPARTATE AMINO TRANSFERASE 27 U/L (10-37); BILIRUBIN,TOTAL 0.6 MG/DL (0.1-1.0); BLOOD UREA NITROGEN 25 MG/DL (7-18); BUN/CREATININE RATIO 19.5 (6.6-38.0); CALCIUM 8.2 MG/DL (8.5-10.1); CHLORIDE 96 MMOL/L (99-107); CREATININE 1.28 MG/DL (0.40-0.90); GLUCOSE 106 MG/DL (70-104); MAGNESIUM 1.9 MG/DL (1.5-2.4); POTASSIUM 4.6 MMOL/L (3.5-5.1); SODIUM 132 MMOL/L (135-145); TOTAL CARBON DIOXIDE 26.4 MMOL/L (24-32); TOTAL PROTEIN 6.1 G/DL (6.4-8.2); eGFR 39 ML/MIN
[2021-02-06] MEDS: K and/or MAG REPLACEMENT MC SCH ×2 (08:00→19:40)
[2021-02-06] MEDS: rivaroxaban 20mg tablet PO SCH (18:02)
[2021-02-06] MEDS: nystatin 15 GM powder TP SCH (20:18)
--- NOTE | 2021-02-06 22:29 | NUR ---
Dr. Zambrano paged about patient disruptive behavior. Patient continue to scream and bang on the overbed table. patient states she wants someone to remain at bedside to hold her hands and hug her. She reports being anxious.
--- NOTE | 2021-02-06 22:35 | NUR ---
Provider call back back. New orders given.
[2021-02-06] MEDS ORDERED: ALPRAZolam 0.25mg tablet PO ONE (22:40)
[2021-02-07 02:00] VITALS: BP 118/55
[2021-02-07 06:00] VITALS: BP 140/43
[2021-02-07 06:59] LABS: BASOPHILS % (AUTO) 0.7 % (0-1); EOSINOPHILS # (AUTO) 0.3 X10'3 (0-0.9); EOSINOPHILS % (AUTO) 4.4 % (0-6); HEMATOCRIT 23.4 % (35.0-45.0); HEMOGLOBIN 7.5 g/dl (12.0-16.0); LYMPHOCYTES # (AUTO) 0.9 X10'3 (1.1-4.8); LYMPHOCYTES % (AUTO) 13.6 % (21-51); MEAN CORPUSCULAR HEMOGLOBIN 25.7 PG (27.0-31.0); MEAN CORPUSCULAR HGB CONC 32.3 g/dL (33.0-36.5); MEAN CORPUSCULAR VOLUME 79.5 FL (78-98); MEAN PLATELET VOLUME 6.9 FL (7.4-10.4); MONOCYTES # (AUTO) 1.4 X10'3 (0-0.9); MONOCYTES % (AUTO) 19.8 % (2-12); NEUTROPHILS # (AUTO) 4.3 X10'3 (1.8-7.7); NEUTROPHILS % (AUTO) 61.5 % (42-75); PLATELET COUNT 248 X10'3 (140-440); RED BLOOD COUNT 2.94 X10'6 (4.20-5.60)
[2021-02-07] MEDS: levoFLOXACIN-Levaquin 250mg/D5 50 ML IV SCH (07:28)
[2021-02-07] MEDS: docusate sod 100mg capsule PO SCH (07:28)
[2021-02-07] MEDS: lactobacillus rhamnosus 10,000 MMU CELLS/CAPSULE PO SCH (07:29)
[2021-02-07] MEDS: famotidine 20mg tablet PO SCH (07:29)
[2021-02-07] MEDS: fludrocortisone acetate 0.1mg tablet PO SCH (07:29)
[2021-02-07] MEDS: levoTHYROXINE 75mcg tablet PO SCH (07:30)
[2021-02-07] MEDS: gabapentin 100mg capsule PO SCH (07:31)
[2021-02-07 07:32] LABS: ALANINE AMINOTRANSFERASE 14 U/L (12-78); ALBUMIN 2.3 G/DL (3.4-5.0); ALBUMIN/GLOBULIN RATIO 0.7 (1.1-1.5); ALKALINE PHOSPHATASE 81 IU/L (46-116); ANION GAP 8 (8-16); ASPARTATE AMINO TRANSFERASE 22 U/L (10-37); BILIRUBIN,TOTAL 0.5 MG/DL (0.1-1.0); BLOOD UREA NITROGEN 26 MG/DL (7-18); BUN/CREATININE RATIO 18.6 (6.6-38.0); CALCIUM 7.9 MG/DL (8.5-10.1); CHLORIDE 96 MMOL/L (99-107); GLUCOSE 96 MG/DL (70-104); MAGNESIUM 1.8 MG/DL (1.5-2.4); POTASSIUM 4.7 MMOL/L (3.5-5.1); SODIUM 133 MMOL/L (135-145); TOTAL CARBON DIOXIDE 29.5 MMOL/L (24-32); TOTAL PROTEIN 5.8 G/DL (6.4-8.2); eGFR 36 ML/MIN
[2021-02-07] MEDS: spironolactone 25 MG tablet PO SCH (07:32)
[2021-02-07] MEDS: furosemide 40mg/4ml inj IV SCH (07:33)
[2021-02-07] MEDS: K and/or MAG REPLACEMENT MC SCH (07:33)
[2021-02-07] MEDS: metoprolol tartrate 12.5mg (1/2 tablet) PO SCH (07:33)
[2021-02-07] MEDS: nystatin 15 GM powder TP SCH ×2 (07:34→13:15)
[2021-02-07 10:17] LABS: ANISOCYTOSIS 2+; HYPOCHROMASIA 2+; MICROCYTOSIS 1+; PLATELET ESTIMATE NORMAL; TOTAL CELLS COUNTED 100
[2021-02-07 10:18] LABS: ELLIPTOCYTES FEW; SCHISTOCYTES FEW
[2021-02-07 11:00] VITALS: BP 147/50
--- NOTE | 2021-02-07 12:54 | NUR ---
SBAR report given to NEMO Prieto from [facility]. All questions answered. Pt pending time for transfer
--- NOTE | 2021-02-07 14:25 | NUR ---
pt departed via EMS to [facility]. All belongings taken. all questions answered. Pt in no distress.
== END 2021-02-07 14:35 | DRG 291 ==
LOC: ER 10:09 → ED HOLD 13:47 → EDBEDREQ 19:02 → PCU 3S 20:33
PROVIDERS: ADMIT Family Medicine; ATTEND Family Medicine
DX: I13.0 Hypertensive heart and chronic kidney disease with heart failure and stage 1 through stage 4 chronic kidney disease, or unspecified chronic kidney disease (principal); I50.33 Acute on chronic diastolic (congestive) heart failure; N17.0 Acute kidney failure with tubular necrosis; J96.01 Acute respiratory failure with hypoxia; N39.0 Urinary tract infection, site not specified; E87.1 Hypo-osmolality and hyponatremia; R18.8 Other ascites; N18.9 Chronic kidney disease, unspecified; B96.5 Pseudomonas (aeruginosa) (mallei) (pseudomallei) as the cause of diseases classified elsewhere; D63.8 Anemia in other chronic diseases classified elsewhere; E03.9 Hypothyroidism, unspecified; E11.22 Type 2 diabetes mellitus with diabetic chronic kidney disease; E66.01 Morbid (severe) obesity due to excess calories; Z96.651 Presence of right artificial knee joint; G89.29 Other chronic pain; M19.90 Unspecified osteoarthritis, unspecified site; Z20.822 Contact with and (suspected) exposure to COVID-19; Z60.2 Problems related to living alone; R14.0 Abdominal distension (gaseous); E78.00 Pure hypercholesterolemia, unspecified; E78.5 Hyperlipidemia, unspecified; B95.2 Enterococcus as the cause of diseases classified elsewhere; I25.10 Atherosclerotic heart disease of native coronary artery without angina pectoris; I48.91 Unspecified atrial fibrillation; M06.9 Rheumatoid arthritis, unspecified; Z82.49 Family history of ischemic heart disease and other diseases of the circulatory system; I25.2 Old myocardial infarction; Z85.3 Personal history of malignant neoplasm of breast; Z95.3 Presence of xenogenic heart valve; Z88.5 Allergy status to narcotic agent; Z88.8 Allergy status to other drugs, medicaments and biological substances; Z68.38 Body mass index [BMI] 38.0-38.9, adult; Z79.899 Other long term (current) drug therapy
CPT/HCPCS: 36415; 71045; 80053; 81001; 83605; 83690; 83735; 83880; 84484; 85007; 85008; 85025; 85610; 87040; 87077; 87081; 87088; 87186; 87635; 93005; 97110; 97162; 97530; 99285; G0378; J0696; J1940; J1956

== ENCOUNTER 2021-03-27 08:23 | Day surgery (SDC) | payer MEDICARE ==
[~2021-03-27] VITALS: Ht 157.5 cm; Wt 77.3 kg
[2021-03-27] VITALS (9 sets, daily range): BP systolic 98–160; BP diastolic 55–99
[~2021-03-27 08:23] MED LIST changes: +ACET325T59 PO; -BUME2TAB7 PO; +FAMO20TA8 PO; +FLUD0.1T PO; +GUAI600T45 PO; +HYDR-3972 PO; +MAGN400O6 PO; +POLY119P2 PO; -POTA-207 PO; +RIVA20TA PO; +SIME80TA16 PO; -VIT1CAPS46 PO; -WARF-65 PO; -WARF4TAB69 PO
[2021-03-27] MEDS ORDERED: normal saline 1000ml 1,000 ML IV PRN (08:45)
[2021-03-27] MEDS ORDERED: albumin 25% 100mL bottle x 1 IV PRN (08:45)
[2021-03-27] MEDS ORDERED: OXYC10TA47 PO (08:58)
[2021-03-27] MEDS ORDERED: SPIR100T5 PO (08:58)
[2021-03-27] MEDS ORDERED: DIPH25CA53 PO (08:58)
[2021-03-27] MEDS ORDERED: DOCU100C40 PO (08:58)
[2021-03-27] MEDS ORDERED: LIDOcaine 1% 30ml preserv. free vial SQ STA (09:12)
--- NOTE | 2021-03-27 10:19 | NUR ---
correction, pt was given 10ml of 1% lidocaine once only for procedure.
== END 2021-03-27 11:08 | disposition home or self-care (01) ==
LOC: SSTAY O 08:23
PROVIDERS: ATTEND Radiology Vascular & Interventional Radiology
DX: R18.8 Other ascites (principal); R14.0 Abdominal distension (gaseous); I25.10 Atherosclerotic heart disease of native coronary artery without angina pectoris; I25.2 Old myocardial infarction; I50.9 Heart failure, unspecified; E78.00 Pure hypercholesterolemia, unspecified; E11.9 Type 2 diabetes mellitus without complications; M19.90 Unspecified osteoarthritis, unspecified site; M06.9 Rheumatoid arthritis, unspecified; Z79.899 Other long term (current) drug therapy; Z85.3 Personal history of malignant neoplasm of breast; Z98.890 Other specified postprocedural states; Z88.8 Allergy status to other drugs, medicaments and biological substances; Z88.5 Allergy status to narcotic agent; Z82.49 Family history of ischemic heart disease and other diseases of the circulatory system
CPT/HCPCS: 49083; J3490

== ENCOUNTER 2021-04-14 07:23 | Day surgery (SDC) | payer MEDICARE, SELFPAY ==
[~2021-04-14] VITALS: Ht 149.9 cm; Wt 92.8 kg
[2021-04-14] VITALS (8 sets, daily range): BP systolic 111–138; BP diastolic 47–82
[~2021-04-14 07:23] MED LIST changes: -ACET325T59 PO; -ALEN70TA80 PO; +DIPH25CA53 PO; +DOCU100C40 PO; -FAMO20TA8 PO; -GUAI600T45 PO; -HYDR-3972 PO; -LEVO150T8 PO; -MAGN400O6 PO; +OXYC10TA47 PO; -POLY119P2 PO; -SIME80TA16 PO; -SIMV-45 PO; +SPIR100T5 PO; -SPIR25TA5 PO
[2021-04-14] MEDS ORDERED: albumin 25% 100mL bottle x 1 IV PRN (07:55)
[2021-04-14] MEDS ORDERED: HYDROcodone/acetaminophen 10/325mg tab PO ONE (10:10)
== END 2021-04-14 12:30 ==
LOC: SSTAY O 07:23
PROVIDERS: ATTEND Radiology Vascular & Interventional Radiology
DX: R18.8 Other ascites (principal); R14.0 Abdominal distension (gaseous); I25.10 Atherosclerotic heart disease of native coronary artery without angina pectoris; I50.9 Heart failure, unspecified; E78.00 Pure hypercholesterolemia, unspecified; I25.2 Old myocardial infarction; E11.9 Type 2 diabetes mellitus without complications; M19.90 Unspecified osteoarthritis, unspecified site; G89.29 Other chronic pain; M06.9 Rheumatoid arthritis, unspecified; Z85.3 Personal history of malignant neoplasm of breast; Z98.890 Other specified postprocedural states; Z79.899 Other long term (current) drug therapy
CPT/HCPCS: 49083; P9047

== ENCOUNTER 2021-04-27 08:47 | Day surgery (SDC) | payer MEDICARE, SELFPAY ==
[2021-04-27] VITALS (8 sets, daily range): BP systolic 86–139; BP diastolic 52–75
[~2021-04-27] VITALS: Ht 149.9 cm; Wt 92.8 kg
[2021-04-27] MEDS ORDERED: LIDOcaine 1% 30ml preserv. free vial IJ STA (09:03)
== END 2021-04-27 11:15 | disposition home or self-care (01) ==
LOC: SSTAY O 08:47
PROVIDERS: ATTEND Radiology Vascular & Interventional Radiology
DX: R18.8 Other ascites (principal); I25.10 Atherosclerotic heart disease of native coronary artery without angina pectoris; I50.9 Heart failure, unspecified; E78.00 Pure hypercholesterolemia, unspecified; I25.2 Old myocardial infarction; M19.90 Unspecified osteoarthritis, unspecified site; G89.29 Other chronic pain; M06.9 Rheumatoid arthritis, unspecified; Z85.3 Personal history of malignant neoplasm of breast; Z98.890 Other specified postprocedural states; Z88.8 Allergy status to other drugs, medicaments and biological substances; Z88.5 Allergy status to narcotic agent; Z79.899 Other long term (current) drug therapy; Z82.49 Family history of ischemic heart disease and other diseases of the circulatory system
CPT/HCPCS: 49083